=== PATIENT | female | born 2000 | race Caucasian/White ===

== ENCOUNTER 2020-03-19 02:46 | Emergency (ER) | payer MEDICAID, OTHER ==
[~2020-03-19] VITALS: Ht 162 cm; Wt 68.0 kg
[2020-03-19] MEDS ORDERED: LACTATED RINGERS 1,000 ML IV STA (03:04)
[2020-03-19] MEDS ORDERED: KETOROLAC 30 MG/ML VIAL IVP STA (03:04)
[2020-03-19] MEDS ORDERED: ONDANSETRON 4 MG/2 ML (SDV) Z0FRAN IVP ONE (03:15)
[2020-03-19 03:17] LABS: BASOPHILS # (AUTO) 0.1 10^3/uL (0.0-0.1); BASOPHILS % (AUTO) 1 % (0-10); EOSINOPHILS # (AUTO) 0.2 10^3/uL (0.0-0.3); EOSINOPHILS % (AUTO) 2 % (0-10); HEMATOCRIT 41 % (35-52); HEMOGLOBIN 12.4 g/dL (11.5-16.0); LYMPHOCYTES # (AUTO) 4.4 10^3/uL (1.0-4.0); LYMPHOCYTES % (AUTO) 36 % (12-44); MEAN CORPUSCULAR HEMOGLOBIN 21 pg (25-34); MEAN CORPUSCULAR HGB CONC 30 g/dL (32-36); MEAN CORPUSCULAR VOLUME 70 fL (80-99); MONOCYTES # (AUTO) 0.7 10^3/uL (0.0-1.0); MONOCYTES % (AUTO) 6 % (0-12); NEUTROPHILS % (AUTO) 57 % (42-75); PLATELET COUNT 338 10^3/uL (130-400); WHITE BLOOD COUNT 12.4 10^3/uL (4.3-11.0)
--- NOTE | 2020-03-19 03:24 | ED GI ---
General Chief Complaint: Abdominal/GI Problems Stated Complaint: STOMACH PAIN Source of Information: Patient Exam Limitations: No Limitations (SAHIL VINSON MED STUDENT) History of Present Illness Date Seen by Provider: Mar 19, 2020 Time Seen by Provider: 03:11 Initial Comments 19yo F that presents to ED with report of abdominal pain that started a couple of hours ago. Pain is described as sharp and burning with radiation to the right side that wraps around to her flank and back. She reports having a similar episode while she was a couple of months ago but the doctors did not give her a clear explanation as to the cause. Patient says she has tired tums in the past and they did not help. She had a vaginal deliver in early January. She is taking oral contraception and is sexually active. She reports that she has not started having her menstrual cycles since giving yet. Reports a history of HIV and is currently taking Biktarvy. Timing/Duration: 1-3 Hours Severity/Quality: Mild, Moderate, Burning, Sharp Location: RUQ, Epigastric Radiation: Back, Flank Activities at Onset: Rest Associated Symptoms: Chest Pain, Diaphoresis, Fever/Chills (chills ), Nausea/Vomiting (nausea w/out vomiting ), Shortness of Air (SAHIL VINSONMED STUDENT) Allergies and Home Medications Allergies Coded Allergies: Sulfa (Sulfonamide Antibiotics) (Verified Allergy, Unknown, 03/19/20) Patient Home Medication List Home Medication List Reviewed: Yes (EVARISTO PEREZ MD) Review of Systems Review of Systems Constitutional: chills, diaphoresis; No dizziness, No fever, No weakness EENTM: No Blurred Vision, No Double Vision, No Eye Pain Respiratory: Denies Cough, Denies Orthopnea; Shortness of Air Cardiovascular: Denies Chest Pain, Denies Irregular Heart Rate, Denies Lightheadedness, Denies Palpitations Gastrointestinal: Denies Abdomen Distended; Abdominal Pain (epigastric and RUQ ); Denies Constipated, Denies Diarrhea; Nausea; Denies Vomiting Genitourinary: Denies Burning, Denies Discharge, Denies Frequency (SAHIL VINSON MED STUDENT) Psychiatric/Neurological: No Symptoms Reported (EVARISTO PEREZ MD) Past Dhgakmt-Fbjdtj-Pjweqo Hx Past Med/Social Hx: Reviewed Nursing Past Med/Soc Hx (EVARISTO PEREZ MD) Patient Social History Recent Foreign Travel: No Contact w/Someone Who Travel: No (SAHIL VINSON,CARLYN STUDENT) Past Medical History HIV/AIDS: Yes (since age 13, is on biktarvy ) (SAHIL VINSON MED STUDENT) Family Medical History Reviewed Nursing Family Hx (EVARISTO PEREZ MD) Physical Exam Vital Signs Vital Signs - First Documented 03/19/20 02:50 Temp 35.4 Pulse 73 Resp 18 B/P (MAP) 116/60 (78) Pulse Ox 99 (EVARISTO PEREZ MD) Vital Signs Capillary Refill : (SAHIL VINSON MED STUDENT) Height/Weight/BMI Height: '" Weight: lbs. oz. kg; BMI Method: General Appearance: WD/WN, mild distress HEENT: PERRL/EOMI, normal ENT inspection, TMs normal, other (dental carries noted bilaterally on upper molars ) Respiratory: chest non-tender, lungs clear, normal breath sounds, no respiratory distress, no accessory muscle use Cardiovascular: regular rate, rhythm, no edema, no gallop, no JVD, no murmur Gastrointestinal: normal bowel sounds, soft, no organomegaly, no pulsatile mass, tenderness (in the epigastric and RUQ to light and deep palpation ) Extremities: normal range of motion Neurologic/Psychiatric: alert, normal mood/affect, oriented x 3 Skin: normal color, cool, damp (SAHIL VINSON MED STUDENT) General Appearance: WD/WN, mild distress Neck: full range of motion, supple Respiratory: lungs clear, normal breath sounds Cardiovascular: regular rate, rhythm, no murmur Peripheral Pulses: 2+ Dorsalis Pedis (R), 2+ Left Dors-Pedis (L), 2+ Radial Pulses (R), 2+ Radial Pulses (L) Gastrointestinal: soft, tenderness (in the epigastric and RUQ to light and deep palpation ) Extremities: non-tender, normal inspection Back: normal inspection, no CVA tenderness, no vertebral tenderness Neurologic/Psychiatric: alert, oriented x 3 Skin: normal color, cool (EVARISTO PEREZ MD) Progress/Results/Core Measures Results/Orders Lab Results Laboratory Tests Test 03/19/20 03:00 03/19/20 03:17 Range/Units White Blood Count 12.4 H 4.3-11.0 10^3/uL Red Blood Count 5.96 H 3.80-5.11 10^6/uL Hemoglobin 12.4 11.5-16.0 g/dL Hematocrit 41 35-52 % Mean Corpuscular Volume 70 L 80-99 fL Mean Corpuscular Hemoglobin 21 L 25-34 pg Mean Corpuscular Hemoglobin Concent 30 L 32-36 g/dL Red Cell Distribution Width 22.6 H 10.0-14.5 % Platelet Count 338 130-400 10^3/uL Mean Platelet Volume 10.0 9.0-12.2 fL Immature Granulocyte % (Auto) 0 % Neutrophils (%) (Auto) 57 42-75 % Lymphocytes (%) (Auto) 36 12-44 % Monocytes (%) (Auto) 6 0-12 % Eosinophils (%) (Auto) 2 0-10 % Basophils (%) (Auto) 1 0-10 % Neutrophils # (Auto) 7.0 1.8-7.8 10^3/uL Lymphocytes # (Auto) 4.4 H 1.0-4.0 10^3/uL Monocytes # (Auto) 0.7 0.0-1.0 10^3/uL Eosinophils # (Auto) 0.2 0.0-0.3 10^3/uL Basophils # (Auto) 0.1 0.0-0.1 10^3/uL Immature Granulocyte # (Auto) 0.0 0.0-0.1 10^3/uL Sodium Level 142 135-145 MMOL/L Potassium Level 3.8 3.6-5.0 MMOL/L Chloride Level 105 98-107 MMOL/L Carbon Dioxide Level 25 21-32 MMOL/L Anion Gap 12 5-14 MMOL/L Blood Urea Nitrogen 10 7-18 MG/DL Creatinine 0.90 0.60-1.30 MG/DL Estimat Glomerular Filtration Rate > 60 BUN/Creatinine Ratio 11 Glucose Level 107 H 70-105 MG/DL Calcium Level 10.4 H 8.5-10.1 MG/DL Corrected Calcium 8.5-10.1 MG/DL Total Bilirubin 0.4 0.1-1.0 MG/DL Aspartate Amino Transf (AST/SGOT) 41 H 5-34 U/L Alanine Aminotransferase (ALT/SGPT) 48 0-55 U/L Alkaline Phosphatase 78 40-136 U/L C-Reactive Protein High Sensitivity 0.44 0.00-0.50 MG/DL Total Protein 8.2 6.4-8.2 GM/DL Albumin 4.7 H 3.2-4.5 GM/DL Lipase 27 8-78 U/L Urine Opiates Screen NEGATIVE NEGATIVE Urine Oxycodone Screen NEGATIVE NEGATIVE Urine Methadone Screen NEGATIVE NEGATIVE Urine Propoxyphene Screen NEGATIVE NEGATIVE Urine Barbiturates Screen NEGATIVE NEGATIVE Ur Tricyclic Antidepressants Screen NEGATIVE NEGATIVE Urine Phencyclidine Screen NEGATIVE NEGATIVE Urine Amphetamines Screen NEGATIVE NEGATIVE Urine Methamphetamines Screen NEGATIVE NEGATIVE Urine Benzodiazepines Screen NEGATIVE NEGATIVE Urine Cocaine Screen NEGATIVE NEGATIVE Urine Cannabinoids Screen NEGATIVE NEGATIVE (EVARISTO PEREZ MD) My Orders Orders - EVARISTO PEREZ MD Cbc With Automated Diff (03/19/20 03:04) Comprehensive Metabolic Panel (03/19/20 03:04) Hs C Reactive Protein (03/19/20 03:04) Ondansetron Injection (Zofran Injectio (03/19/20 03:15) Lactated Ringers (Lr 1000 Ml Iv Solution (03/19/20 03:04) Ed Iv/Invasive Line Start (03/19/20 03:04) Ketorolac Injection (Toradol Injection) (03/19/20 03:04) Urine Bedside (03/19/20 03:06) Lipase (03/19/20 03:06) Drug Screen Stat (Urine) (03/19/20 03:43) Fentanyl Injection (Sublimaze Injection (03/19/20 03:50) Famotidine Injection (Pepcid Injection) (03/19/20 03:50) (EVARISTO PEREZ MD) Medications Given in ED Current Medications Medications Dose Ordered Sig/Pablo Route Start Time Stop Time Status Last Admin Dose Admin Ondansetron HCl 4 mg ONCE ONCE IVP 03/19/20 03:15 03/19/20 03:16 DC 03/19/20 03:12 4 MG (EVARISTO PEREZ MD) Vital Signs/I&O 03/19/20 02:50 Temp 35.4 Pulse 73 Resp 18 B/P (MAP) 116/60 (78) Pulse Ox 99 (EVARISTO PEREZ MD) Progress Progress Note : Progress Note I have seen and examined this 19yo female who presents with epigastric pain that started several hours ago and reports a history of HIV. Working up for epigastric/RUQ pain which includes cholelithiasis, cholecystitis, hepatitis, hepatic steatosis, and peptic ulcer disease, (SAHIL VINSON,MED STUDENT) Progress Note : Progress Note I have seen and evaluated the patient and agree with above except as indicated. I have directed the plan of care. Patient is here with upper abdominal pain as well as right upper quadrant pain and concerns that she is having problems with her gallbladder. She states that she had similar during her but has not had follow-up since delivery of her baby in January. Does have nausea. Denies fevers but does appear somewhat diaphoretic. Evaluation as above. Plan for IV and labs as well as urine bedside. Toradol 30 mg IV ordered as well as Zofran 4 mg IV. Monitor patient. 0354: Fentanyl 50 g IV and Pepcid 20 mg IV ordered for persistent pain. Labs reviewed and do not show significant findings at this point. Monitor patient. 0420: Pain improved and patient na erating by mouth fluids without difficulty now. I did discuss follow-up and will give her information for local surgeons. Discharged home with return precautions. Patient verbalize understanding instructions and agreement with plan. (EVARISTO PEREZ MD) Departure Impression Primary Impression: Upper abdominal pain Disposition: HOME, SELF-CARE Condition: Improved Departure-Patient Inst. Decision time for Depature: 04:21 (EVARISTO PEREZ MD) Referrals: HUGO MORALES BRETT D DO Patient Instructions: Severe Abdominal Pain, Adult (DC), Gallstones (DC) Add. Discharge Instructions: All discharge instructions reviewed with patient and/or family. Voiced understanding. Eat a light, non-fatty diet for the next week or so and limited ability as tolerated. You should avoid fatty foods if you have gallbladder disease. You may take Pepcid or the generic famotidine, 20 mg daily for the next week or 2 and then as needed. You should follow-up with the surgeon listed or of your choice for recheck and further evaluation and for possible upper endoscopy (scope). You may take Tylenol/acetaminophen 1000 mg every 8 hours as needed for pain. Return for worse pain, fever, vomiting, blood in her vomit or stool or other concerns as needed. Continue other home medications as previously prescribed. SAHIL VINSON,MED STUDENT Mar 19, 2020 03:24 EVAIRSTO PEREZ MD Mar 19, 2020 03:55
[2020-03-19 03:27] LABS: ALBUMIN 4.7 GM/DL (3.2-4.5); CHLORIDE 105 MMOL/L (98-107); POTASSIUM 3.8 MMOL/L (3.6-5.0); SODIUM 142 MMOL/L (135-145)
[2020-03-19 03:28] LABS: CALCIUM 10.4 MG/DL (8.5-10.1)
[2020-03-19 03:30] LABS: GLUCOSE 107 MG/DL (70-105); TOTAL PROTEIN 8.2 GM/DL (6.4-8.2)
[2020-03-19 03:31] LABS: CARBON DIOXIDE 25 MMOL/L (21-32)
[2020-03-19 03:32] LABS: BILIRUBIN,TOTAL 0.4 MG/DL (0.1-1.0)
[2020-03-19 03:33] LABS: ALKALINE PHOSPHATASE 78 U/L (40-136); GFR ESTIMATED > 60
[2020-03-19 03:34] LABS: BUN/CREATININE RATIO 11
[2020-03-19 03:36] LABS: ALANINE AMINOTRANSFERASE 48 U/L (0-55)
[2020-03-19 03:37] LABS: LIPASE 27 U/L (8-78)
[2020-03-19] MEDS ORDERED: FAMOTIDINE 20MG/2ML IV (PEPCID) IV STA (03:50)
[2020-03-19] MEDS ORDERED: fentaNYL INJECTION 100 MCG/2 ML AMP IVP STA (03:50)
[2020-03-19 04:13] LABS: AMPHETAMINE SCREEN, URINE NEGATIVE (NEGATIVE); BARBITURATE SCREEN URINE NEGATIVE (NEGATIVE); BENZODIAZEPINES SCREEN URINE NEGATIVE (NEGATIVE); CANNABINOID SCREEN, URINE NEGATIVE (NEGATIVE); COCAINE SCREEN URINE NEGATIVE (NEGATIVE); METHADONE STAT NEGATIVE (NEGATIVE); METHAMPHETAMINE SCREEN URINE S NEGATIVE (NEGATIVE); OPIATE SCREEN URINE NEGATIVE (NEGATIVE); OXYCODONE STAT NEGATIVE (NEGATIVE); PROPOXYPHENE STAT NEGATIVE (NEGATIVE); TRICYCLIC ANTIDEPRESSANTS SCRE NEGATIVE (NEGATIVE)
[2020-03-19 04:34] VITALS: BP 112/80
== END 2020-03-19 04:35 | disposition home or self-care (01) ==
LOC: ER 02:49
DX: R10.13 Epigastric pain (principal); Z88.2 Allergy status to sulfonamides
CPT/HCPCS: 36415; 80053; 80306; 83690; 84703; 85025; 86141

== ENCOUNTER 2020-03-29 06:48 | Emergency (ER) | payer MEDICAID ==
[~2020-03-29] VITALS: Ht 162 cm; Wt 68.0 kg
--- NOTE | 2020-03-29 07:20 | ED Abdominal Pain ---
General Chief Complaint: Abdominal/GI Problems Stated Complaint: UPPER ABD PAIN Nursing Triage Note: PT REPORTS TO ED FOR UPPER ABD PAIN THAT STARTED YESTERDAY. PT AMB TO ROOM 05 WITHOUT DIFFICULTY. Sepsis Screen: No Definite Risk Source of Information: Patient Exam Limitations: No Limitations (TK RYAN STUDENT) History of Present Illness Date Seen by Provider: Mar 29, 2020 Time Seen by Provider: 07:00 Initial Comments Ms. Summers is a 19 y/o F who presents to ED with chief complaint of epigastric and RUQ abdominal pain. She describes the pain as "sharp" and radiating to the right back. She rates the pain at 9/10 and started last night at 10pm. She was "barely" able to sleep due to the pain. She said that the pain has happened in the past approximately every 2 weeks ever since she was . She had a vaginal 2 months ago with an uncomplicated at [place], [place]. She was told in the past her pain was either due to her "gallbladder or ulcer" and she was given pain medications in the past and discharged from the ED. She denies any inciting event or predictability to the pain. She has tried tums and tylenol with no relief. She reports pain worsens when taking a deep breath and she has some nausea. She denies vomiting or worsening of pain with eating or position changes. She denies fever, chest pain, RANGEL, urinary or bowel changes. Last time she ate was at 8pm last night and last drink of water was at 3-4am. (TK RYAN MED STUDENT) Allergies and Home Medications Allergies Coded Allergies: Sulfa (Sulfonamide Antibiotics) (Verified Allergy, Unknown, 03/19/20) Home Medications Hydrocodone/Acetaminophen 1 Each Tablet, 1 EACH PO Q4H PRN for PAIN-SEVERE (8- 10) Prescribed by: CRISTIAN FERRO on 03/29/20 0943 Ondansetron 4 Mg Tab.rapdis, 4 MG SL Q4H PRN for NAUSEA/VOMITING Prescribed by: CRISTIAN FERRO on 03/29/20 0942 Oxycodone HCl/Acetaminophen 1 Each Tablet, 1 TAB PO Q4H PRN for PAIN- BREAKTHROUGH Prescribed by: JIMMY FARRELL on 03/30/20 2244 Promethazine HCl 25 Mg Tablet, 25 MG PO Q6H PRN for NAUSEA/VOMITING Prescribed by: JIMMY FARRELL on 03/30/20 3043 Patient Home Medication List Home Medication List Reviewed: Yes (TK RYAN MED STUDENT) Review of Systems Review of Systems Constitutional: No chills, No dizziness, No fever, No weakness EENTM: No Blurred Vision, No Nose Congestion, No Throat Pain Respiratory: Denies Cough, Denies Shortness of Air Cardiovascular: Denies Chest Pain, Denies Lightheadedness Gastrointestinal: Abdominal Pain; Denies Constipated, Denies Diarrhea; Nausea; Denies Vomiting Genitourinary: Flank Pain Musculoskeletal: no symptoms reported Skin: no symptoms reported; No rash Psychiatric/Neurological: Denies Headache, Denies Numbness, Denies Weakness (TK RYAN MED STUDENT) Past Aelkhvl-Ykcocc-Etywph Hx Patient Social History Type Used: Cigarettes 2nd Hand Smoke Exposure: No Recent Foreign Travel: No Contact w/Someone Who Travel: No Recent Infectious Disease Expo: No Recent Hopitalizations: No (TK RYAN MED STUDENT) Immunizations Up To Date Tetanus Booster (TDap): Less than 5yrs PED Vaccines UTD: Yes Date of Influenza Vaccine: Dec 27, 2019 (TK RYAN MED STUDENT) Seasonal Allergies Seasonal Allergies: No (TK RYAN MED STUDENT) Past Medical History Surgeries: No Respiratory: No Cardiac: No Neurological: No HIV/AIDS: Yes (since age 13, is on biktarvy ) Genitourinary: No Gastrointestinal: No Musculoskeletal: No Endocrine: No HEENT: No Cancer: No Integumentary: No Blood Disorders: No (TK RYAN MED STUDENT) Physical Exam Vital Signs Vital Signs - First Documented 03/29/20 06:59 Temp 36.5 Pulse 55 Resp 18 B/P (MAP) 109/64 (79) Pulse Ox 100 O2 Delivery Room Air (CRISTIAN SHERIFF MD) Vital Signs Capillary Refill : Less Than 3 Seconds (KT RYAN MED STUDENT) Height/Weight/BMI Height: '" Weight: lbs. oz. kg; 25.00 BMI Method: General Appearance: WD/WN, mild distress HEENT: PERRL/EOMI, normal ENT inspection, pharynx normal Neck: non-tender, full range of motion, normal inspection Respiratory: chest non-tender, lungs clear, normal breath sounds, no respiratory distress, no accessory muscle use Cardiovascular: regular rate, rhythm, no murmur Gastrointestinal: normal bowel sounds, soft; No distended, No guarding, No rebound; tenderness (RUQ and epigastric TTP. R Flank TTP. Positive cardenas sign. ) Extremities: normal range of motion, non-tender, normal inspection, no pedal edema, no calf tenderness Back: normal inspection, CVA tenderness (R); No CVA tenderness (L) Neurologic/Psychiatric: no motor/sensory deficits, alert, normal mood/affect, oriented x 3 Skin: normal color, warm/dry (TK RYAN MED STUDENT) Progress/Results/Core Measures Results/Orders Lab Results Laboratory Tests Test 03/29/20 07:20 03/29/20 07:28 Range/Units Urine Color YELLOW Urine Clarity CLEAR Urine pH 8.0 5-9 Urine Specific Falcon 1.015 L 1.016-1.022 Urine Protein TRACE H NEGATIVE Urine Glucose (UA) NEGATIVE NEGATIVE Urine Ketones NEGATIVE NEGATIVE Urine Nitrite NEGATIVE NEGATIVE Urine Bilirubin 1+ H NEGATIVE Urine Urobilinogen 4.0 < = 1.0 MG/DL Urine Leukocyte Esterase TRACE H NEGATIVE Urine RBC (Auto) NEGATIVE NEGATIVE Urine RBC NONE /HPF Urine WBC RARE /HPF Urine Squamous Epithelial Cells RARE /HPF Urine Crystals NONE /LPF Urine Amorphous Sediment LARGE PADDY PHOSPHATE H /LPF Urine Bacteria NEGATIVE /HPF Urine Casts NONE /LPF Urine Mucus NEGATIVE /LPF Urine Culture Indicated NO White Blood Count 8.0 4.3-11.0 10^3/uL Red Blood Count 5.77 H 3.80-5.11 10^6/uL Hemoglobin 12.0 11.5-16.0 g/dL Hematocrit 41 35-52 % Mean Corpuscular Volume 70 L 80-99 fL Mean Corpuscular Hemoglobin 21 L 25-34 pg Mean Corpuscular Hemoglobin Concent 30 L 32-36 g/dL Red Cell Distribution Width 21.6 H 10.0-14.5 % Platelet Count 315 130-400 10^3/uL Mean Platelet Volume 9.8 9.0-12.2 fL Immature Granulocyte % (Auto) 0 % Neutrophils (%) (Auto) 61 42-75 % Lymphocytes (%) (Auto) 32 12-44 % Monocytes (%) (Auto) 6 0-12 % Eosinophils (%) (Auto) 1 0-10 % Basophils (%) (Auto) 0 0-10 % Neutrophils # (Auto) 4.9 1.8-7.8 10^3/uL Lymphocytes # (Auto) 2.5 1.0-4.0 10^3/uL Monocytes # (Auto) 0.5 0.0-1.0 10^3/uL Eosinophils # (Auto) 0.0 0.0-0.3 10^3/uL Basophils # (Auto) 0.0 0.0-0.1 10^3/uL Immature Granulocyte # (Auto) 0.0 0.0-0.1 10^3/uL Sodium Level 141 135-145 MMOL/L Potassium Level 3.9 3.6-5.0 MMOL/L Chloride Level 106 98-107 MMOL/L Carbon Dioxide Level 25 21-32 MMOL/L Anion Gap 10 5-14 MMOL/L Blood Urea Nitrogen 8 7-18 MG/DL Creatinine 0.82 0.60-1.30 MG/DL Estimat Glomerular Filtration Rate > 60 BUN/Creatinine Ratio 10 Glucose Level 95 70-105 MG/DL Calcium Level 10.3 H 8.5-10.1 MG/DL Corrected Calcium 8.5-10.1 MG/DL Total Bilirubin 1.4 H 0.1-1.0 MG/DL Aspartate Amino Transf (AST/SGOT) 126 H 5-34 U/L Alanine Aminotransferase (ALT/SGPT) 110 H 0-55 U/L Alkaline Phosphatase 98 40-136 U/L C-Reactive Protein High Sensitivity 0.63 H 0.00-0.50 MG/DL Total Protein 8.1 6.4-8.2 GM/DL Albumin 4.6 H 3.2-4.5 GM/DL Lipase 28 8-78 U/L Serum Test, Qualitative NEGATIVE NEGATIVE (CRISTIAN SHERIFF MD) My Orders Orders - CRISTIAN SHERIFF MD Cbc With Automated Diff (03/29/20 07:25) Comprehensive Metabolic Panel (03/29/20 07:25) Hs C Reactive Protein (03/29/20 07:25) Hcg,Qualitative Serum (03/29/20 07:25) Ua Culture If Indicated (03/29/20 07:25) Ed Iv/Invasive Line Start (03/29/20 07:25) Us Gallbladder [id number] (03/29/20 07:27) Fentanyl Injection (Sublimaze Injection (03/29/20 07:30) Ondansetron Injection (Zofran Injectio (03/29/20 07:30) Lipase (03/29/20 07:29) Morphine Injection (Morphine Injection (03/29/20 08:29) Promethazine Injection (Phenergan Injec (03/29/20 08:45) Ns Iv 1000 Ml (Sodium Chloride 0.9%) (03/29/20 08:31) (CRISTIAN SHERIFF MD) Medications Given in ED (CRISTIAN SHERIFF MD) Vital Signs/I&O 03/29/20 03/29/20 06:59 09:54 Temp 36.5 36.6 Pulse 55 57 Resp 18 16 B/P (MAP) 109/64 (79) 110/61 Pulse Ox 100 98 O2 Delivery Room Air Room Air (CRISTIAN SHERIFF MD) Blood Pressure Mean: 79 Progress Progress Note : Progress Note Ms. Summers is a 19 y/o F with PMH of uncomplicated vaginal 2 months ago who presents to ED with chief complaint of RUQ and epigastric TTP. Differential includes but not limited to: gastritis, choledocholithiasis, acute cholecystitis, pancreatitis, renal calculi or colic. Will give anti-nausea and pain medications. Will order a RUQ abdominal US. Will also order lipase, CRP, CBC, CMP and UA to look for signs of infection, kidney stone or pancreatitis. 08 Update: US technician preventative medicine informal report is multiple mobile stones in gallbladder with common bile duct measured at 12mm. CBC showed no leukocytosis. Elevated CRP, tbili and transaminases. Initial 50mcg fentanyl and 8 zofran provided minimal relief, gave additional pain medications and phenergine bolus at this time. (TK RYAN STUDENT) Diagnostic Imaging Diagonstic Imaging: Ultrasound Plain Films/CT/US/NM/MRI: abdomen Comments Gallbladder ultrasound report reviewed and discussed with the radiologist. See report below: NAME: AVERY SUMMERS [facility] REC#: [id number] PT STATUS: REG ER : 2000 PHYSICIAN: CRISTIAN SHERIFF MD ADMIT DATE: 03/29/20/ER Draft Date of Exam:03/29/20 US GALLBLADDER [id number] CLINICAL INDICATION: Patient with right upper quadrant pain. EXAM: Right upper quadrant ultrasound. COMPARISON: None. FINDINGS: Bowel gas obscures some portions of the pancreatic tail. Otherwise visualized portions of the pancreas is unremarkable. The liver has normal echogenicity and echotexture. The liver measures 16.1 cm in craniocaudal dimension. The liver surface is smooth. There is no liver mass. The main portal vein demonstrates normal hepatopetal flow. There is no intrahepatic ductal dilation. Common bile duct is dilated at 1.2 cm. There are multiple hyperechoic mobile stones within the gallbladder with posterior shadowing seen. There is also a hyperechoic object within the mid to distal common bile duct with posterior shadowing concerning for a stone in the common bile duct. There is no pericholecystic fluid. The gallbladder is fluid distended. There is positive sonographic Cardenas sign. The gallbladder wall measures 3 mm. Right kidney has normal cortical thickness with no stones, mass, or hydronephrosis. Right kidney measures 10.4 cm in craniocaudal dimension. The visualized portions of the abdominal aorta and IVC are unremarkable. There is no abdominal ascites. IMPRESSION: 1: There is dilation of the common duct measuring 1.2 cm, with a stone within the mid to distal portion of the common duct. This is concerning for choledocholithiasis. MRCP would better evaluate. 2: There is cholelithiasis with positive sonographic Cardenas sign. These findings may be related to very early acute cholecystitis. Results of this report were discussed with Dr. Cristian Ferro via the telephone on 03/29/2020 at 0835 hours. Dictated on workstation # [id number] Dict: 03/29/20 0829 Trans: 03/29/20 0838 [facility] [id number] Interpreted by: BRADY OLIVAREZ MD (CRISTIAN SHERIFF MD) Departure Communication (Admissions) Time/Spoke to Admitting Phy: 08:42 Dr. Morales (CRISTIAN SHERIFF MD) Impression Primary Impression: Cholelithiasis Qualified Codes: K80.01 - Calculus of gallbladder with acute cholecystitis with obstruction Additional Impressions: Choledocholithiasis with acute cholecystitis Right upper quadrant pain Disposition: ADMITTED INPATIENT Condition: Improved Admissions Decision to Admit Reason: Admit from ER (General) Decision to Admit/Date: Mar 29, 2020 Time/Decision to Admit Time: 08:42 (CRISTIAN SHERIFF MD) Departure-Patient Inst. Referrals: NESSA MARADIAGA MD (PCP/Family) Primary Care Physician Patient Instructions: Gallstones Add. Discharge Instructions: Drink plenty of clear liquids and eat a diet extremely low in fats and oils. Follow-up with Dr. Morales next week. Return to the emergency room if you have worsening symptoms including worsening vomiting, escalating pain, fever, etc. You may take Tylenol and/or ibuprofen for pain. You may take up to 600 mg of ibuprofen every 6 hours as needed and/or Tylenol (acetaminophen) up to 1000 mg every 6 hours as needed. If you have more intense pain you may take hydrocodone as prescribed. Use Zofran as prescribed for nausea and vomiting. All discharge instructions reviewed with patient and/or family. Voiced understanding. Scripts Hydrocodone/Acetaminophen (Hydrocodone-Acetamin 5-325 mg) 1 Each Tablet 1 EACH PO Q4H PRN for PAIN-SEVERE (8-10), #10 TAB Prov: CRISTIAN SHERIFF MD 03/29/20 Ondansetron (Ondansetron Odt) 4 Mg Tab.rapdis 4 MG SL Q4H PRN for NAUSEA/VOMITING, #10 TAB Prov: CRISTIAN SHERIFF MD 03/29/20 Medical student attestation and attending note: I have personally interviewed and examined this patient along with AJAY Sanchez. I have reviewed AJAY documentation and agree with his history, physical, and assessments except where otherwise noted. This 19-year-old young lady presents to the emergency room with several months of right upper quadrant pain and nausea that started during her . She has had 1 prior ER visit over a week ago for similar symptoms. She continues to have problems since then. On ultrasound today she is found to have chol elithiasis with possible early acute cholecystitis and possible choledocholithiasis. Case was discussed with Dr. Morales who is recommending cholecystectomy with cholangiogram. If she still appears to have obstruction during cholangiogram, she may be transferred to gastroenterology for follow-up ERCP. Patient is receiving a liter of IV fluid with Phenergan. Nausea was refractory to Zofran treatment. Pain was initially treated with fentanyl and followed by morphine. Exam: General: Alert and oriented, well-developed, no acute distress HEENT: Normocephalic and atraumatic, mucous membranes somewhat dry Heart: Regular rate and rhythm without murmur Lungs: Clear to auscultation bilaterally with normal effort Abdomen: Soft, tender in the epigastrium and right upper quadrant, positive Cardenas sign, nondistended, normal bowel sounds Extremities: Normal to inspection Neuropsych: Alert and oriented with no gross focal deficits 09:50 -Dr. Morales who presented to the emergency room to evaluate the patient. After discussing the situation with Dr. Morales, she elects to wait and arrange outpatient surgery. She was prescribed medications for symptomatic management and return precautions were provided. (CRISTIAN SHERIFF MD) Copy Copies To 1: HUGO MORALES VAN A MED STUDENT Mar 29, 2020 07:20 CRISTIAN SHERIFF MD Mar 29, 2020 08:53
[2020-03-29] MEDS ORDERED: ONDANSETRON 4 MG/2 ML (SDV) Z0FRAN IVP ONE (07:30)
[2020-03-29] MEDS ORDERED: fentaNYL INJECTION 100 MCG/2 ML AMP IVP ONE (07:30)
[2020-03-29 07:35] LABS: CLARITY,URINE CLEAR; COLOR,URINE YELLOW; GLUCOSE, URINE (UA) NEGATIVE (NEGATIVE); KETONES,URINE NEGATIVE (NEGATIVE); LEUKOCYTE ESTERASE ,URINE TRACE (NEGATIVE); NITRITE,URINE NEGATIVE (NEGATIVE); PROTEIN,URINE TRACE (NEGATIVE)
[2020-03-29 07:40] LABS: BASOPHILS % (AUTO) 0 % (0-10); EOSINOPHILS % (AUTO) 1 % (0-10); HEMATOCRIT 41 % (35-52); LYMPHOCYTES # (AUTO) 2.5 10^3/uL (1.0-4.0); LYMPHOCYTES % (AUTO) 32 % (12-44); MEAN CORPUSCULAR HEMOGLOBIN 21 pg (25-34); MEAN CORPUSCULAR HGB CONC 30 g/dL (32-36); MEAN CORPUSCULAR VOLUME 70 fL (80-99); MEAN PLATELET VOLUME 9.8 fL (9.0-12.2); MONOCYTES # (AUTO) 0.5 10^3/uL (0.0-1.0); MONOCYTES % (AUTO) 6 % (0-12); NEUTROPHILS # (AUTO) 4.9 10^3/uL (1.8-7.8); NEUTROPHILS % (AUTO) 61 % (42-75); PLATELET COUNT 315 10^3/uL (130-400)
[2020-03-29 07:44] LABS: BACTERIA,URINE NEGATIVE /HPF; WBC,URINE RARE /HPF
[2020-03-29 07:45] LABS: AMORPHOUS SEDIMENT,UR LARGE AMOR PHOSPHATE /LPF; BILIRUBIN,URINE 1+ (NEGATIVE); SQUAMOUS EPITHELIAL CELL,UR RARE /HPF
[2020-03-29 07:57] LABS: ALBUMIN 4.6 GM/DL (3.2-4.5); CHLORIDE 106 MMOL/L (98-107)
[2020-03-29 07:58] LABS: POTASSIUM 3.9 MMOL/L (3.6-5.0); SODIUM 141 MMOL/L (135-145)
[2020-03-29 07:59] LABS: CALCIUM 10.3 MG/DL (8.5-10.1)
[2020-03-29 08:00] LABS: GLUCOSE 95 MG/DL (70-105); TOTAL PROTEIN 8.1 GM/DL (6.4-8.2)
[2020-03-29 08:01] LABS: CARBON DIOXIDE 25 MMOL/L (21-32)
[2020-03-29 08:02] LABS: BILIRUBIN,TOTAL 1.4 MG/DL (0.1-1.0)
[2020-03-29 08:03] LABS: ALKALINE PHOSPHATASE 98 U/L (40-136)
[2020-03-29 08:04] LABS: CREATININE SERUM 0.82 MG/DL (0.60-1.30); GFR ESTIMATED > 60
[2020-03-29 08:05] LABS: BUN/CREATININE RATIO 10
[2020-03-29 08:06] LABS: ALANINE AMINOTRANSFERASE 110 U/L (0-55)
[2020-03-29 08:07] LABS: LIPASE 28 U/L (8-78)
[2020-03-29] MEDS ORDERED: morphine INJ 10 MG/ML 1ML (SYR OR VIAL) IVP STA (08:29)
[2020-03-29] MEDS ORDERED: NS IV 1000 ML 1,000 ML IV SCH (08:31)
--- NOTE | 2020-03-29 08:39 | Diagnostic Imaging Report ---
CLINICAL INDICATION: Patient with right upper quadrant pain. EXAM: Right upper quadrant ultrasound. COMPARISON: None. FINDINGS: Bowel gas obscures some portions of the pancreatic tail. Otherwise visualized portions of the pancreas is unremarkable. The liver has normal echogenicity and echotexture. The liver measures 16.1 cm in craniocaudal dimension. The liver surface is smooth. There is no liver mass. The main portal vein demonstrates normal hepatopetal flow. There is no intrahepatic ductal dilation. Common bile duct is dilated at 1.2 cm. There are multiple hyperechoic mobile stones within the gallbladder with posterior shadowing seen. There is also a hyperechoic object within the mid to distal common bile duct with posterior shadowing concerning for a stone in the common bile duct. There is no pericholecystic fluid. The gallbladder is fluid distended. There is positive sonographic Cardenas sign. The gallbladder wall measures 3 mm. Right kidney has normal cortical thickness with no stones, mass, or hydronephrosis. Right kidney measures 10.4 cm in craniocaudal dimension. The visualized portions of the abdominal aorta and IVC are unremarkable. There is no abdominal ascites. IMPRESSION: 1: There is dilation of the common duct measuring 1.2 cm, with a stone within the mid to distal portion of the common duct. This is concerning for choledocholithiasis. MRCP would better evaluate. 2: There is cholelithiasis with positive sonographic Cardenas sign. These findings may be related to very early acute cholecystitis. Results of this report were discussed with Dr. Cristian Ferro via the telephone on 03/29/2020 at 0835 hours. Dictated by: Dictated on workstation # [id number]
[2020-03-29] MEDS ORDERED: PROMETHAZINE INJ 25 MG/ML (PHENERGAN) AMP IVP ONE (08:45)
[2020-03-29] MEDS ORDERED: ACHD5005 PO (09:42)
[2020-03-29] MEDS ORDERED: ONDA4TAB11 SL (09:42)
[2020-03-29 09:54] VITALS: BP 110/61
--- NOTE | 2020-03-29 10:10 | Consultation - Surgery ---
History of Present Illness History of Present Illness Patient Consulted On(sarita/time) 03/29/20 10:04 Time Seen by Provider: 09:11 History of Present Illness Surgery asked to consult regarding cholelithiasis and RUQ pain. HPI per ED: PT REPORTS TO ED FOR UPPER ABD PAIN THAT STARTED YESTERDAY. PT AMB TO ROOM 05 WITHOUT DIFFICULTY. Ms. Brownlee is a 19 y/o F who presents to ED with chief complaint of epigastric and RUQ abdominal pain. She describes the pain as "sharp" and radiating to the right back. She rates the pain at 9/10 and started last night at 10pm. She was "barely" able to sleep due to the pain. She said that the pain has happened in the past approximately every 2 weeks ever since she was . She had a vaginal 2 months ago with an uncomplicated at [place], [place]. She was told in the past her pain was either due to her "gallbladder or ulcer" and she was given pain medications in the past and discharged from the ED. She denies any inciting event or predictability to the pain. She has tried tums and tylenol with no relief. She reports pain worsens when taking a deep breath and she has some nausea. She denies vomiting or worsening of pain with eating or p osition changes. She denies fever, chest pain, RANGEL, urinary or bowel changes. Last time she ate was at 8pm last night and last drink of water was at 3-4am. When I spoke to pt this morning she states that she has had this pain for "months" and it is worse with fatty foods. Nothing seems to make the pain better. She states the pain radiated into her back. Allergies and Home Medications Allergies Coded Allergies: Sulfa (Sulfonamide Antibiotics) (Verified Allergy, Unknown, 03/19/20) Home Medications Hydrocodone/Acetaminophen 1 Each Tablet, 1 EACH PO Q4H PRN for PAIN-SEVERE (8- 10) Prescribed by: CRISTIAN FERRO on 03/29/20 0943 Ondansetron 4 Mg Tab.rapdis, 4 MG SL Q4H PRN for NAUSEA/VOMITING Prescribed by: CRISTIAN FERRO on 03/29/20 0942 Patient Home Medication List Home Medication List Reviewed: Yes Past Rbxnyko-Ibhkhl-Zvjgbe Hx Patient Social History Alcohol Use: Denies Use Recreational Drug Use: No Smoking Status: Current Everyday Smoker Type Used: Cigarettes 2nd Hand Smoke Exposure: No Recent Foreign Travel: No Contact w/Someone Who Travel: No Recent Infectious Disease Expo: No Recent Hopitalizations: No Immunizations Up To Date Tetanus Booster (TDap): Less than 5yrs PED Vaccines UTD: Yes Date of Influenza Vaccine: Dec 27, 2019 Seasonal Allergies Seasonal Allergies: No Surgeries History of Surgeries: No Respiratory History of Respiratory Disorde: No Cardiovascular History of Cardiac Disorders: No Neurological History of Neurological Disord: No Reproductive System : No HIV/AIDS: Yes (since age 13, is on biktarvy ) Genitourinary History of Genitourinary Disor: No Gastrointestinal History of Gastrointestinal Di: No Musculoskeletal History of Musculoskeletal Dis: No Endocrine History of Endocrine Disorders: No HEENT History of HEENT Disorders: No Cancer History of Cancer: No Integumentary History of Skin or Integumenta: No Blood Transfusions History of Blood Disorders: No Family Medical History Significant Family History: Other Conditions/Hx (Pt denies her parents have DM, HTN, CAD and no cancer in her family) Review of Systems-General Constitutional: malaise, weakness EENTM: No blurred vision, No double vision, No eye pain, No mouth swelling, No epistaxis Respiratory: No cough, No dyspnea on exertion, No short of breath Cardiovascular: No chest pain, No edema, No palpitations Gastrointestinal: abdominal pain (RUQ); No hematemesis; nausea; No vomiting Genitourinary: No dysuria, No frequency, No hematuria Musculoskeletal: No joint pain, No joint swelling, No muscle pain, No muscle stiffness Skin: No change in color, No change in hair/nails Psychiatric/Neurological: Denies Anxiety, Denies Depressed, Denies Seizure, Denies Tremors Other pt denies any hx of abnormal bleeding or bruising Physical Exam-General Problems Physical Exam Vital Signs Vital Signs - First Documented 03/29/20 06:59 Temp 36.5 Pulse 55 Resp 18 B/P (MAP) 109/64 (79) Pulse Ox 100 O2 Delivery Room Air Capillary Refill : Less Than 3 Seconds General Appearance: WD/WN, mild distress Eyes: Bilateral Eye PERRL, Bilateral Eye EOMI HEENT: pharynx normal; No scleral icterus (R), No scleral icterus (L) Neck: non-tender, full range of motion, supple Respiratory: chest non-tender, lungs clear, normal breath sounds, no respiratory distress, no accessory muscle use Cardiovascular: regular rate, rhythm, no murmur Gastrointestinal: soft, no organomegaly, no pulsatile mass, tenderness (RUQ) Back: no CVA tenderness, no vertebral tenderness Extremities: normal range of motion, non-tender, normal inspection, no pedal edema, no calf tenderness 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, no motor/sensory deficits, alert, normal mood/affect, oriented x 3 Skin: normal color, warm/dry Lymphatic: no adenopathy (neck, axilla or groin) Data Review Labs Laboratory Tests 03/29/20 07:20: Urine Color YELLOW, Urine Clarity CLEAR, Urine pH 8.0, Urine Specific [place] 1.015L, Urine Protein TRACEH, Urine Glucose (UA) NEGATIVE, Urine Ketones NEGATIVE, Urine Nitrite NEGATIVE, Urine Bilirubin 1+H, Urine Urobilinogen 4.0, Urine Leukocyte Esterase TRACEH, Urine RBC (Auto) NEGATIVE, Urine RBC NONE, Urine WBC RARE, Urine Squamous Epithelial Cells RARE, Urine Crystals NONE, Urine Amorphous Sediment LARGE PADDY PHOSPHATEH, Urine Bacteria NEGATIVE, Urine Casts NONE, Urine Mucus NEGATIVE, Urine Culture Indicated NO 03/29/20 07:28: White Blood Count 8.0, Red Blood Count 5.77H, Hemoglobin 12.0, Hematocrit 41, Mean Corpuscular Volume 70L, Mean Corpuscular Hemoglobin 21L, Mean Corpuscular Hemoglobin Concent 30L, Red Cell Distribution Width 21.6H, Platelet Count 315, Mean Platelet Volume 9.8, Immature Granulocyte % (Auto) 0, Neutrophils (%) (A uto) 61, Lymphocytes (%) (Auto) 32, Monocytes (%) (Auto) 6, Eosinophils (%) (Auto) 1, Basophils (%) (Auto) 0, Neutrophils # (Auto) 4.9, Lymphocytes # (Auto) 2.5, Monocytes # (Auto) 0.5, Eosinophils # (Auto) 0.0, Basophils # (Auto) 0.0, Immature Granulocyte # (Auto) 0.0, Sodium Level 141, Potassium Level 3.9, Chloride Level 106, Carbon Dioxide Level 25, Anion Gap 10, Blood Urea Nitrogen 8, Creatinine 0.82, Estimat Glomerular Filtration Rate > 60, BUN/Creatinine Ratio 10, Glucose Level 95, Calcium Level 10.3H, Corrected Calcium , Total Bilirubin 1.4H, Aspartate Amino Transf (AST/SGOT) 126H, Alanine Aminotransferase (ALT/SGPT) 110H, Alkaline Phosphatase 98, C-Reactive Protein High Sensitivity 0.63H, Total Protein 8.1, Albumin 4.6H, Lipase 28, Serum Test, Qualitative NEGATIVE Radiology Date of Exam:03/29/20 US GALLBLADDER [id number] CLINICAL INDICATION: Patient with right upper quadrant pain. EXAM: Right upper quadrant ultrasound. COMPARISON: None. FINDINGS: Bowel gas obscures some portions of the pancreatic tail. Otherwise visualized portions of the pancreas is unremarkable. The liver has normal echogenicity and echotexture. The liver measures 16.1 cm in craniocaudal dimension. The liver surface is smooth. There is no liver mass. The main portal vein demonstrates normal hepatopetal flow. There is no intrahepatic ductal dilation. Common bile duct is dilated at 1.2 cm. There are multiple hyperechoic mobile stones within the gallbladder with posterior shadowing seen. There is also a hyperechoic object within the mid to distal common bile duct with posterior shadowing concerning for a stone in the common bile duct. There is no pericholecystic fluid. The gallbladder is fluid distended. There is positive sonographic Cardenas sign. The gallbladder wall measures 3 mm. Right kidney has normal cortical thickness with no stones, mass, or hydronephrosis. Right kidney measures 10.4 cm in craniocaudal dimension. The visualized portions of the abdominal aorta and IVC are unremarkable. There is no abdominal ascites. IMPRESSION: 1: There is dilation of the common duct measuring 1.2 cm, with a stone within the mid to distal portion of the common duct. This is concerning for choledocholithiasis. MRCP would better evaluate. 2: There is cholelithiasis with positive sonographic Cardenas sign. These findings may be related to very early acute cholecystitis. Results of this report were discussed with Dr. Cristian Ferro via the telephone on 03/29/2020 at 0835 hours. Dictated on workstation # [id number] Dict: 03/29/20 0829 Trans: 03/29/20 0838 CV [id number] Interpreted by: BRADY OLIVAREZ MD Assessment/Plan Assessment/Plan Assessment/Plan Acute Cholecystitis with Cholelithiasis possible Choledochalithiasis. Pt was given options of surgery today, surgery at a later date or no surgery at all. I told her my opinion was that she needed surgery sooner rather than later. I offered to do Laparoscopic Cholecystectomy today or we could do it next week. We discussed the procedure, risks and complications not limited to pain, bleeding, infection, scar, damage to bowel or bile duct and need for further procedure. Pt's US showed a dilated CBD and Radiologist was concerned about possible choledochal obstruction. I think the cholangiogram during the procedure will be very important and I talked to her about the need of possible ERCP. She decided she did not want to do surgery today and would rather schedule it next week; I think she wants to get home to her new baby. I told her if the pain returned or was worse, or any other change of symptoms she should come back to the ER. 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 All questions answered to her satisfaction. HUGO MORALES DO Mar 29, 2020 10:10
[2020-03-30] MEDS ORDERED: PROM25TA14 PO (22:43)
[2020-03-30] MEDS ORDERED: OXYC1TAB87 PO (22:43)
== END 2020-03-29 09:54 | disposition other institution (70) ==
LOC: EDUNIT# 06:48 → ER 06:52
DX: K80.10 Calculus of gallbladder with chronic cholecystitis without obstruction (principal); Z88.2 Allergy status to sulfonamides
CPT/HCPCS: 36415; 76705; 80053; 81000; 83690; 84703; 85025; 86141

== ENCOUNTER 2020-03-29 23:44 | Day surgery (SDC) | payer MEDICAID ==
[~2020-03-29] VITALS: Ht 162.6 cm; Wt 72.2 kg
[~2020-03-29 23:44] MED LIST: ACHD5005 PO; ONDA4TAB11 SL
[2020-03-30] VITALS (11 sets, daily range): BP systolic 101–123; BP diastolic 49–61
[2020-03-30] MEDS ORDERED: morphine INJ 10 MG/ML 1ML (SYR OR VIAL) IVP STA (00:24)
[2020-03-30] MEDS ORDERED: NS IV 500 ML 500 ML IV ONE (00:24)
[2020-03-30] MEDS ORDERED: FAMOTIDINE 20MG/2ML IV (PEPCID) IVP ONE (00:30)
[2020-03-30] MEDS ORDERED: CALCIUM CARBONATE 600 MG (CALCARB) TAB PO ONE (00:30)
[2020-03-30] MEDS ORDERED: ONDANSETRON 4 MG/2 ML (SDV) Z0FRAN IVP ONE (00:30)
--- NOTE | 2020-03-30 00:33 | ED Abdominal Pain ---
General Chief Complaint: Abdominal/GI Problems Stated Complaint: UPPER ABD PAIN Nursing Triage Note: PT CO OF R UPPER ABD PAIN AND BURNING, WAS SEEN IN ED ON 03/29 AND HAS GB PAIN, PT HAS HAD LAB AND ULTRASOUND DONE DURING VISIT. PT WAS TOLD TO COME BACK TO ED FOR PAIN NOT RELIEVED BY HYDROCODONE. Sepsis Screen: No Definite Risk Source of Information: Patient Exam Limitations: No Limitations History of Present Illness Date Seen by Provider: Mar 30, 2020 Time Seen by Provider: 00:21 Initial Comments patient presents to ER by private conveyance from home with chief complaint of progressive worsening biliary colic. She was worked up earlier yesterday morning and discovered to have gallstones without cholecystitis. Dr. Asher encouraged her to have her gallbladder out she said she would prefer to wait until later in the week to do it. She says unfortunately her pain and nausea is not under control despite ondansetron and hydrocodone. She did take her last dose about 4 hours ago. She ate her last meal around 1999 yesterday. She says she had some pa sta salad. She has had no diarrhea or constipation. No fevers or chills. Allergies and Home Medications Allergies Coded Allergies: Sulfa (Sulfonamide Antibiotics) (Verified Allergy, Unknown, 03/19/20) Home Medications Hydrocodone/Acetaminophen 1 Each Tablet, 1 EACH PO Q4H PRN for PAIN-SEVERE (8-10 ) Prescribed by: VIJI RUIZ on 03/29/20 0943 Ondansetron 4 Mg Tab.rapdis, 4 MG SL Q4H PRN for NAUSEA/VOMITING Prescribed by: VIJI RUIZ on 03/29/20 0942 Patient Home Medication List Home Medication List Reviewed: Yes Review of Systems Review of Systems Constitutional: No chills, No diaphoresis EENTM: No Blurred Vision, No Double Vision Respiratory: Denies Cough, Denies Shortness of Air Cardiovascular: Denies Chest Pain, Denies Lightheadedness Gastrointestinal: See HPI, Abdominal Pain; Denies Constipated, Denies Diarrhea; Nausea, Vomiting Genitourinary: Denies Burning, Denies Discharge Musculoskeletal: No back pain, No joint pain Skin: No pruritus, No rash All Other Systems Reviewed Negative Unless Noted: Yes Past Pfyuebw-Yflwnm-Tltufe Hx Patient Social History Alcohol Use: Denies Use Recreational Drug Use: No Smoking Status: Current Everyday Smoker Type Used: Cigarettes 2nd Hand Smoke Exposure: No Recent Foreign Travel: No Contact w/Someone Who Travel: No Recent Infectious Disease Expo: No Recent Hopitalizations: No Physical Abuse: No Sexual Abuse: No Immunizations Up To Date Tetanus Booster (TDap): Less than 5yrs PED Vaccines UTD: Yes Date of Influenza Vaccine: Dec 27, 2019 Seasonal Allergies Seasonal Allergies: No Past Medical History Surgeries: No Respiratory: No Cardiac: No Neurological: No : 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 oz. kg; 25.00 BMI Method: General Appearance: WD/WN, mild distress HEENT: PERRL/EOMI, pharynx normal Neck: full range of motion, normal inspection Respiratory: lungs clear, normal breath sounds, no respiratory distress, no accessory muscle use Cardiovascular: normal peripheral pulses, regular rate, rhythm Peripheral Pulses: 2+ Radial Pulses (R), 2+ Radial Pulses (L) Gastrointestinal: normal bowel sounds, non tender, soft Extremities: normal range of motion, normal inspection, normal capillary refill Neurologic/Psychiatric: alert, normal mood/affect, oriented x 3 Skin: normal color, warm/dry Progress/Results/Core Measures Results/Orders My Orders Orders - JIMMY FARRELL Calcium Carbonate Tablet (Calcarb 600 Ta (03/30/20 00:30) Famotidine Injection (Pepcid Injection) (03/30/20 00:30) Cbc With Automated Diff (03/30/20:24) Comprehensive Metabolic Panel (03/30/20:24) Ed Iv/Invasive Line Start (03/30/20:24) Ns Iv 500 Ml (Sodium Chloride 0.9%) (03/30/20:24) Morphine Injection (Morphine Injection (03/30/20:24) Ondansetron Injection (Zofran Injectio (03/30/20 00:30) Vital Signs/I&O 03/29/20 23:55 Temp 36.3 Pulse 69 Resp 18 B/P (MAP) 125/58 (80) Pulse Ox 98 Blood Pressure Mean: 80 Progress Progress Note : Time: 00:39 Progress Note Morphine ondansetron 500 of fluids and I will put her on observation under Dr. Asher. Departure Communication (Admissions) Time/Spoke to Admitting Phy: 00:27 Discussed the case with Dr. Asher and he will admit her on the follow his other cases. Nothing by mouth. Pain nausea IV fluids. Impression Primary Impression: Gallstones without obstruction of gallbladder Qualified Codes: K80.20 - Calculus of gallbladder without cholecystitis without obstruction Additional Impression: Biliary colic Disposition: ADMITTED INPATIENT Condition: Stable Admissions Decision to Admit Reason: Admit from ER (General) Decision to Admit/Date: Mar 30, 2020 Time/Decision to Admit Time: 00:20 Departure-Patient Inst. Referrals: NESSA MARADIAGA MD (PCP/Family) Primary Care Physician JIMMY FARRELL Mar 30, 2020 00:33
[2020-03-30 00:38] LABS: BASOPHILS % (AUTO) 0 % (0-10); EOSINOPHILS # (AUTO) 0.1 10^3/uL (0.0-0.3); EOSINOPHILS % (AUTO) 1 % (0-10); HEMATOCRIT 37 % (35-52); HEMOGLOBIN 10.9 g/dL (11.5-16.0); LYMPHOCYTES # (AUTO) 2.7 10^3/uL (1.0-4.0); LYMPHOCYTES % (AUTO) 33 % (12-44); MEAN CORPUSCULAR HEMOGLOBIN 21 pg (25-34); MEAN CORPUSCULAR HGB CONC 30 g/dL (32-36); MEAN CORPUSCULAR VOLUME 71 fL (80-99); MONOCYTES # (AUTO) 0.4 10^3/uL (0.0-1.0); MONOCYTES % (AUTO) 6 % (0-12); NEUTROPHILS # (AUTO) 4.8 10^3/uL (1.8-7.8); NEUTROPHILS % (AUTO) 60 % (42-75); PLATELET COUNT 269 10^3/uL (130-400); WHITE BLOOD COUNT 8.1 10^3/uL (4.3-11.0)
[2020-03-30 00:53] LABS: ALBUMIN 4.1 GM/DL (3.2-4.5); CHLORIDE 107 MMOL/L (98-107); POTASSIUM 3.7 MMOL/L (3.6-5.0); SODIUM 140 MMOL/L (135-145)
[2020-03-30 00:54] LABS: CALCIUM 8.8 MG/DL (8.5-10.1)
[2020-03-30 00:55] LABS: GLUCOSE 84 MG/DL (70-105); TOTAL PROTEIN 7.2 GM/DL (6.4-8.2)
[2020-03-30 00:56] LABS: CARBON DIOXIDE 23 MMOL/L (21-32)
[2020-03-30 00:57] LABS: BILIRUBIN,TOTAL 1.2 MG/DL (0.1-1.0)
[2020-03-30 00:59] LABS: ALKALINE PHOSPHATASE 115 U/L (40-136); CREATININE SERUM 0.86 MG/DL (0.60-1.30); GFR ESTIMATED > 60
[2020-03-30 01:00] LABS: BUN/CREATININE RATIO 8
[2020-03-30 01:02] LABS: ALANINE AMINOTRANSFERASE 150 U/L (0-55)
[2020-03-30 01:05] LABS: LIPASE 32 U/L (8-78)
[2020-03-30] MEDS ORDERED: PROMETHAZINE INJ 25 MG/ML (PHENERGAN) AMP IVP PRN (01:45)
[2020-03-30] MEDS ORDERED: morphine INJ 10 MG/ML 1ML (SYR OR VIAL) IVP PRN ×2 (01:45)
[2020-03-30] MEDS ORDERED: LACTATED RINGERS 1,000 ML IV SCH (01:45)
[2020-03-30] MEDS ORDERED: ONDANSETRON 4 MG/2 ML (SDV) Z0FRAN IVP PRN ×2 (01:45→10:00)
[2020-03-30] MEDS: HYDROmorphone 2 MG/ML VIAL (DILAUDID) IV PRN ×2 (02:30→08:25)
--- NOTE | 2020-03-30 02:59 | NUR ---
AVERY SUMMERS admitted to room 412-1, with an admitting diagnosis of Cholecystitis/gallstones, on 03/30/20 from OR via wheelchair, accompanied by staff.AVERY SUMMERS introduced to surroundings, call light, bed controls, phone, TV, temperature control, lights, meal times, smoking policy, visitor policy, side rail policy, bathrooms and showers. Patient Rights given to patient in the handbook. AVERY SUMMERS verbalizes understanding that [facility] is not responsible for the loss or damage to any personal effects or valuables that are kept in the patients posession during their hospitalization.
[2020-03-30] MEDS ORDERED: PANTOPRAZOLE 40 MG (PROTONIX) VIAL IV SCH (09:00)
--- NOTE | 2020-03-30 09:21 | History & Physical-Surgical ---
History of Present Illness History of Present Illness Reason for visit/HPI Surgery asked to admit pt secondary to increasing pain from Acute cholelithiasis with Cholecystitis HPI per ED: PT CO OF R UPPER ABD PAIN AND BURNING, WAS SEEN IN ED ON 03/29 AND HAS GB PAIN, PT HAS HAD LAB AND ULTRASOUND DONE DURING VISIT. PT WAS TOLD TO COME BACK TO ED FOR PAIN NOT RELIEVED BY HYDROCODONE. Initial Comments patient presents to ER by private conveyance from home with chief complaint of progressive worsening biliary colic. She was worked up earlier yesterday morning and discovered to have gallstones without cholecystitis. Dr. Asher encouraged her to have her gallbladder out she said she would prefer to wait until later in the week to do it. She says unfortunately her pain and nausea is not under control despite ondansetron and hydrocodone. She did take her last dose about 4 hours ago. She ate her last meal around 1999 yesterday. She says she had some p zara salad. She has had no diarrhea or constipation. No fevers or chills.\\ When I saw pt this am she states pain got much worse and had to come back to ER. Date of Admission Mar 30, 2020 at 00:35 Time Seen by a Provider: 09:04 I consulted on this patient on 03/30/20 09:16 Attending Physician Hugo Asher DO Admitting Physician Maggi Varela MD Consult Allergies and Home Medications Allergies Coded Allergies: Sulfa (Sulfonamide Antibiotics) (Verified Allergy, Unknown, 03/19/20) Home Medications Hydrocodone/Acetaminophen 1 Each Tablet, 1 EACH PO Q4H PRN for PAIN-SEVERE (8- 10) Prescribed by: VIJI RUIZ on 03/29/20 0943 Ondansetron 4 Mg Tab.rapdis, 4 MG SL Q4H PRN for NAUSEA/VOMITING Prescribed by: VIJI RUIZ on 03/29/20 0942 Patient Home Medication List Home Medication List Reviewed: Yes Past Shxpzhn-Jtgnhz-Tnccmw Hx Patient Social History Alcohol Use: Denies Use Recreational Drug Use: No Smoking Status: Current Everyday Smoker Type Used: Cigarettes 2nd Hand Smoke Exposure: No Recent Foreign Travel: No Contact w/Someone Who Travel: No Recent Infectious Disease Expo: No Recent Hopitalizations: No Immunizations Up To Date Tetanus Booster (TDap): Less than 5yrs PED Vaccines UTD: Yes Date of Pneumonia Vaccine: Oct 23, 2019 Date of Influenza Vaccine: Feb 22, 2020 Seasonal Allergies Seasonal Allergies: No Surgeries History of Surgeries: No Respiratory History of Respiratory Disorde: No Cardiovascular History of Cardiac Disorders: No Neurological History of Neurological Disord: No 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) HIV/AIDS: Yes (since age 13, is on biktarvy ) Genitourinary History of Genitourinary Disor: No Gastrointestinal History of Gastrointestinal Di: No Musculoskeletal History of Musculoskeletal Dis: No Endocrine History of Endocrine Disorders: No HEENT History of HEENT Disorders: No Cancer History of Cancer: No Psychosocial History of Psychiatric Problem: No Integumentary History of Skin or Integumenta: No Blood Transfusions History of Blood Disorders: No Family Medical History Significant Family History: Other Conditions/Hx (Arthritis and EtOH abuse) Family Medial History: Alcoholism 19 MOTHER Arthritis 19 MOTHER, Onset:40's - 50 Review of Systems Constitutional: chills, malaise, weakness EENTM: No blurred vision, No double vision, No eye pain, No mouth pain, No mouth swelling, No epistaxis Respiratory: No cough, No dyspnea on exertion, No short of breath Cardiovascular: No chest pain, No palpitations Gastrointestinal: RUQ; No jaundice; nausea; No vomiting Genitourinary: No dysuria, No frequency, No hematuria Musculoskeletal: No back pain, No joint pain, No joint swelling Skin: No change in color, No change in hair/nails Psychiatric/Neurological: Denies Anxiety, Denies Depressed, Denies Seizure, Denies Tremors pt denies any hx of abnormal bleeding or bruising Physical Exam Vital Signs Vital Signs - First Documented 03/29/20 03/30/20 23:55 01:35 Temp 36.3 Pulse 69 Resp 18 B/P (MAP) 125/58 (80) Pulse Ox 98 O2 Delivery Room Air Capillary Refill : Less Than 3 Seconds Height, Weight, BMI Height: '" Weight: lbs. oz. kg; 27.30 BMI Method: General Appearance: No Apparent Distress, WD/WN Eyes: Bilateral Eye PERRL, Bilateral Eye EOMI HEENT: Pharynx Normal, Moist Mucous Membranes; No Scleral Icterus (L), No Scleral Icterus (R) Neck: Full Range of Motion, Non Tender, Supple Respiratory: Chest Non Tender, Lungs Clear, Normal Breath Sounds, No Accessory Muscle Use, No Respiratory Distress Cardiovascular: Regular Rate, Rhythm, No Murmur Gastrointestinal: No Organomegaly, Soft, Tenderness Back: No CVA Tenderness, No Vertebral Tenderness Extremity: No Calf Tenderness, No Pedal Edema Neurologic/Psychiatric: Alert, Oriented x3, No Motor/Sensory Deficits, Normal Mood/Affect, 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 Skin: Normal Color, Warm/Dry Lymphatic: No Adenopathy (neck, axilla or groin) Data Review Labs Laboratory Tests 03/30/20 00:30: White Blood Count 8.1, Red Blood Count 5.21H, Hemoglobin 10.9L, Hematocrit 37, Mean Corpuscular Volume 71L, Mean Corpuscular Hemoglobin 21L, Mean Corpuscular Hemoglobin Concent 30L, Red Cell Distribution Width 21.3H, Platelet Count 269, Mean Platelet Volume 10.0, Immature Granulocyte % (Auto) 0, Neutrophils (%) (Auto) 60, Lymphocytes (%) (Auto) 33, Monocytes (%) (Auto) 6, Eosinophils (%) (Auto) 1, Basophils (%) (Auto) 0, Neutrophils # (Auto) 4.8, Lymphocytes # (Auto) 2.7, Monocytes # (Auto) 0.4, Eosinophils # (Auto) 0.1, Basophils # (Auto) 0.0, Immature Granulocyte # (Auto) 0.0, Sodium Level 140, Potassium Level 3.7, Chloride Level 107, Carbon Dioxide Level 23, Anion Gap 10, Blood Urea Nitrogen 7, Creatinine 0.86, Estimat Glomerular Filtration Rate > 60, BUN/Creatinine Ratio 8, Glucose Level 84, Calcium Level 8.8, Corrected Calcium 8.7, Total Bilirubin 1.2H, Aspartate Amino Transf (AST/SGOT) 140H, Alanine Aminotransferase (ALT/SGPT) 150H, Alkaline Phosphatase 115, Total Protein 7.2, Albumin 4.1, Lipase 32 03/30/20 02:20: Coronavirus 2019 ([facility]) Negative Assessment/Plan Assessment/Plan Admission Diagonsis Cholelithiasis with Cholecystits, r/o Choledochalithiasis Admission Status: Observation Assessment/Plan Cholelithiasis with Cholecystits, r/o Choledochalithiasis Plan to OR for Laparoscopic Cholecystectomy with possible cholangiogram and possible open. Discussed all risks and complications; not limited to pain, bleeding, infection, scar, damage to bowel or bile duct and need for further procedure. All questions answered to her satisfaction. Clinical Quality Measures DVT/VTE Risk/Contraindication: Risk Factor Score Per Nursin RFS Level Per Nursing on Admit: 2=Moderate HUGO ASHER DO Mar 30, 2020 09:21
[2020-03-30] MEDS ORDERED: diphenhydrAMINE 50 MG/ML INJ (BENADRYL) IVP PRN (09:30)
[2020-03-30] MEDS ORDERED: LACTATED RINGERS 1,000 ML IV PRN (09:50)
[2020-03-30] MEDS ORDERED: SEVOFLURANE (ULTANE) 15 ML INHAL SOLN ONE ×2 (09:56→11:34)
[2020-03-30] MEDS ORDERED: ROCURONIUM 10 MG/ML 5 ML SYRINGE IV ONE (09:56)
[2020-03-30] MEDS ORDERED: fentaNYL INJECTION 100 MCG/2 ML AMP ONE (09:56)
[2020-03-30] MEDS ORDERED: proPOfol 200 MG/20 ML (DIPRIVAN) VIAL IV ONE (09:56)
[2020-03-30] MEDS ORDERED: ONDANSETRON 4 MG/2 ML (SDV) Z0FRAN ONE (09:56)
[2020-03-30] MEDS ORDERED: LIDOCAINE PF 2% 5 ML (XYLOCAINE) VIAL ONE (09:56)
[2020-03-30] MEDS ORDERED: MIDAZOLAM 2 MG/2 ML (VERSED) VIAL ONE (09:56)
[2020-03-30] MEDS ORDERED: fentaNYL INJECTION 100 MCG/2 ML AMP IVP ONE (10:00)
[2020-03-30] MEDS ORDERED: MEPERIDINE (DEMEROL) INJ 50 MG/ML IVP ONE (10:00)
[2020-03-30] MEDS ORDERED: morphine INJ 10 MG/ML 1ML (SYR OR VIAL) IVP ONE (10:00)
[2020-03-30] MEDS ORDERED: PROMETHAZINE INJ 25 MG/ML (PHENERGAN) AMP IVP ONE (10:00)
[2020-03-30] MEDS ORDERED: WATER (STERILE) FOR INJECTION 40 ML ONE (10:18)
[2020-03-30] MEDS ORDERED: IOPAMIDOL 61% 30 ML (ISOVUE 300) VIAL ONE (10:18)
[2020-03-30] MEDS ORDERED: ceFAZolin INJECTION 2,000 MG ONE (10:18)
[2020-03-30] MEDS ORDERED: LIDOCAINE/EPI 1%-1:100,000 (XYLOCAINE) 20ML ONE (10:19)
[2020-03-30] MEDS ORDERED: GLYCOPYRROLATE 0.2 MG/ML (ROBINUL) 2 ML VIAL ONE (11:16)
[2020-03-30] MEDS ORDERED: NEOSTIGMINE 3 MG/3 ML VIAL ONE (11:16)
--- NOTE | 2020-03-30 11:47 | Progress Note-Post Operative ---
Post-Operative Progess Note Surgeon (s)/Store Clerk Checker (s) Surgeon HUGO MORALES DO Store Clerk Checker: Nikita Pre-Operative Diagnosis Acute Una/Una with possible choledochalithiasis Post-Operative Diagnosis Acute Una/Una with choledochalithiasis Procedure & Operative Findings Date of Procedure 03/30/20 Procedure Performed/Findings PROCEDURE: Laparoscopic cholecystectomy with intraoperative cholangiogram. COMPLICATIONS: None. PROCEDURE: The patient was taken to the operating suite and was prepped and draped in sterile fashion. A surgical pause was performed. Just superior to the umbilicus, a 12 mm incision was made. Dissection was taken down to the fascia, which was then scored and grasped with a Kadie and the abdomen was then entered. A 0 Vicryl suture was placed in a [id number] fashion and a Cisneros trocar was placed and secured. Pneumoperitoneum was achieved. A 5mm trochar place in the subxyphoid and 2 in the right lower quadrant. There were adhesions to the gallbladder; which usually indicates previous gallbladder attacks. There was also a significant amout of edema around the gallbladder. The gallbladder was then grasped and elevated. The cystic duct, and cystic artery were then dissected out. Clip was placed on the distal portion of the cystic duct which was then partially transected. An arrow catheter was inserted into the duct. The cholangiogram was then performed. A stone was seen freely floating in the CBD (which was also slightly dilated); however, contrastmade its way into the duodenum. Catheter removed. Three clips were placed on proximal portion of the cystic duct and then the duct was then transected. Clips were placed along the proximal and distal portion of the cystic artery which was then transected. Hook cautery was used to dissect the gallbladder from the gallbladder fossa achieving hemostasis. The gallbladder was placed in an Endobag and removed through the 12 mm trocar site. The abdomen was then reinspected. Copious amounts of irrigation were used to irrigate the abdomen and there were no signs of active bleeding. Hemostasis had been achieved. The 12 mm fascial defect was then closed with 0 Vicryl suture that had been placed in a [id number] fashion. The abdomen was then desufflated, the trocars were removed. The abdomen was then washed and dried. The skin was then closed using 4-0 Monocryl in a subcuticular fashion. The abdomen was washed and dried and Skin Affix was place over incisions. Patient tolerated the procedure well without any complications and was taken to the recovery room in stable condition. Dr. Shelton assisted on this case helping to make incisions and close incisions, as well as identify anatomy and hold anatomy out of the way. Anesthesia Type GET Estimated Blood Loss Estimated blood loss (mL): scant Specimens/Packing Specimens Removed GB and contents HUGO MORALES DO Mar 30, 2020 11:47
--- NOTE | 2020-03-30 11:52 | Discharge Inst-Surgical ---
Discharge Inst-Surgical Depart Medication/Instructions New, Converted or Re-Newed RX: Other (Pt has pain meds at home) Patient Instructions Follow up Appt: Make appointment for 1 week. [phone] Instructions: No lifting greater than 20 pounds. No strenuous activity. May shower in 24 hours, no tub bath or soaking. Use incentive spirometer at home as directed. No Smoking Skin/Wound Care: May remove bandages in am. You need to leave the Dermabond on incision it will fall off on it's own. Symptoms to Report: Appetite Changes, Extremity Discoloration, Numbness/Tingling, Swelling Increased, Bleeding Excessive, Eyesight Changes, Pain Increased, Urine Color Change, Constipation(Persistent), Fever over 101 degree F, Pain/Pressure in chest, Urinating Difficulty, Cough Up/Vomit Blood, Heart Beat Irreg/Pounding, Pain/Pressure in jaw, Cramps in feet or legs, Lightheadedness, Pain/Pressure in shoulder, Diarrhea(Persistent), Memory Changes Suddenly, Questions/Concerns, Weight gain consecutive days, Dizziness/Fainting, Nausea/Vomiting, Shortness of Breath, Weight gain over 2 pounds If questions or concerns contact your physician Or seek help at emergency department. Activity Activity as Tolerated: Yes Activity Instructions: Avoid Stress to Incision Driving Instructions: No Driving/Refer to Diet Discharge Diet: Avoid Fatty Foods, Low Fat/Low Cholesterol Diet After 24 Hours: Clear Liquid if Nauseous If Any Problems/Questions/Issu: Contact Your Physician, Go to Emergency Room Skin/Wound Care Infection Signs and Symptoms: Increased Redness, Foul Odor of Wound, Increased Drainage, Skin Itchy or Has a Rash, Increased Swelling, Temperature Above 101 F Wound Care Comment: heatin pad to shoulder or neck tonight for pain Bathing Instructions: Shower Stitches/[place]/Dermabond Dis: Dermabond Ice Pack: Ice On and Off Site (at incision sites as needed for pain) HUGO MORALES DO Mar 30, 2020 11:52
--- NOTE | 2020-03-30 12:25 | Diagnostic Imaging Report ---
INDICATION: Cholecystectomy EXAM: 11 seconds of fluoroscopy time were utilized during intraoperative cholangiography. FINDINGS: There is a filling defect within the distal common bile duct which did not obstruct the lumen. Its diameter is about the same width as the endoscopy device visualized in the [id number]. IMPRESSION: Film shows a filling defect, likely a distal common duct stone without its obstruction of uncertain diameter but matching the width of the surgical device included in the [id number]. Dictated by: Dictated on workstation # [id number]
--- NOTE | 2020-03-30 12:40 | NUR ---
Patient back from surgery at this time. alert and orientated on room air. 4 lap sites noted on abdomen, ice pack applied to abdomen. patient requesting pain medication at this time, home prescription of hydrocodone will be given since patient is to discharge this afternoon. clear liquid diet ordered, Incentive spirometer started, and patient encouraged to ambulate in order to go home
[2020-03-30] MEDS ORDERED: HYDROcodone/APAP 5 MG/325 MG (LORTAB) TAB PO PRN (13:00)
[2020-03-30] MEDS ORDERED: OXYC1TAB87 PO (22:43)
[2020-03-30] MEDS ORDERED: PROM25TA14 PO (22:43)
== END 2020-03-30 13:40 | disposition home or self-care (01) ==
LOC: EDUNIT# 23:44 → ER 23:46 → SDC 23:47 → 4TH 23:47 → UNDOADMOB 03-30 00:35 → 4TH 03-30 00:35 → UNDODISOB 03-30 13:40 → SDC 03-30 13:40
PROVIDERS: ATTEND Surgery
DX: K80.12 Calculus of gallbladder with acute and chronic cholecystitis without obstruction (principal); J45.909 Unspecified asthma, uncomplicated; F17.210 Nicotine dependence, cigarettes, uncomplicated; Z20.828 Contact with and (suspected) exposure to other viral communicable diseases; Z88.2 Allergy status to sulfonamides
CPT/HCPCS: 47563; 76000; 80053; 83690; 85025; 87081; 88304; 96374; 96375; 99284; U0002; 36415; 87635

== ENCOUNTER 2020-03-30 21:15 | Emergency (ER) | payer MEDICAID ==
[~2020-03-30] VITALS: Ht 162.6 cm; Wt 68.0 kg
[2020-03-30] MEDS ORDERED: morphine INJ 10 MG/ML 1ML (SYR OR VIAL) IVP STA (21:31)
--- NOTE | 2020-03-30 21:38 | ED Abdominal Pain ---
General Chief Complaint: Post OP Complications/Pain Stated Complaint: POST OP PAIN -- GALLBLADDER Nursing Triage Note: PT AMBULATE TO ROOM 07 WITH C/O PAIN AFTER HAVING GALLBLADDER REMOVED THIS MORNING. PT STATES THAT THE PAIN MEDS PRESCRIBED ARE NOT HELPING. Sepsis Screen: No Definite Risk Source of Information: Patient Exam Limitations: No Limitations History of Present Illness Date Seen by Provider: Mar 30, 2020 Time Seen by Provider: 21:18 Initial Comments Patient presents to ER by private conveyance with chief complaint she is same day status post cholecystectomy laparoscopic by Dr. Morales. She was sent home with ondansetron and hydrocodone. She says she's even tried taking to the hydrocodone without adequate relief of pain. She is able to keep a little soup down but her nausea is only partially controlled by the ondansetron. She says she has problems in the past with fentanyl only lasting about 10 minutes. She s ays morphine lasts longer. She's not having any fevers chills diarrhea or constipation. She is not having any warmth redness or discharge around the wounds. She denies recreational use of opiates, heroin etc. she does have a history of HIV. Allergies and Home Medications Allergies Coded Allergies: Sulfa (Sulfonamide Antibiotics) (Verified Allergy, Unknown, 03/19/20) Home Medications Hydrocodone/Acetaminophen 1 Each Tablet, 1 EACH PO Q4H PRN for PAIN-SEVERE (8- 10) Prescribed by: VIJI RUIZ on 03/29/20 0943 Ondansetron 4 Mg Tab.rapdis, 4 MG SL Q4H PRN for NAUSEA/VOMITING Prescribed by: VIJI RUIZ on 03/29/20 0942 Patient Home Medication List Home Medication List Reviewed: Yes Review of Systems Review of Systems Constitutional: No chills, No diaphoresis, No fever EENTM: No Blurred Vision, No Double Vision Respiratory: Denies Cough, Denies Shortness of Air Cardiovascular: Denies Chest Pain, Denies Edema, Denies Lightheadedness Gastrointestinal: See HPI, Abdominal Pain; Denies Constipated, Denies Diarrhea; Nausea; Denies Vomiting Genitourinary: Denies Burning, Denies Discharge Musculoskeletal: No back pain, No joint pain Skin: No pruritus, No rash All Other Systems Reviewed Negative Unless Noted: Yes Past Tnbtytk-Lfcsvm-Pvadpc Hx Patient Social History Alcohol Use: Denies Use Recreational Drug Use: No Smoking Status: Current Everyday Smoker Type Used: Cigarettes 2nd Hand Smoke Exposure: No Recent Foreign Travel: No Contact w/Someone Who Travel: No Recent Infectious Disease Expo: No Recent Hopitalizations: No Immunizations Up To Date Tetanus Booster (TDap): Less than 5yrs PED Vaccines UTD: Yes Date of Pneumonia Vaccine: Oct 23, 2019 Date of Influenza Vaccine: Feb 22, 2020 Seasonal Allergies Seasonal Allergies: No Past Medical History Surgeries: No Respiratory: No Cardiac: No Neurological: No HIV/AIDS: Yes (since age 13, is on biktarvy ) Genitourinary: No Gastrointestinal: No Musculoskeletal: No Endocrine: No HEENT: No Cancer: No Psychosocial: No Integumentary: No Blood Disorders: No Family Medical History Alcoholism 19 MOTHER Arthritis 19 MOTHER, Onset:40's - 50 Other Conditions/Hx Physical Exam Vital Signs Vital Signs - First Documented 03/30/20 21:27 Temp 36.8 Pulse 76 Resp 18 B/P (MAP) 120/66 (84) O2 Delivery Room Air Capillary Refill : Less Than 3 Seconds Height/Weight/BMI Height: '" Weight: lbs. oz. 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, no motor/sensory deficits, alert Skin: normal color, warm/dry Progress/Results/Core Measures Results/Orders Lab Results Laboratory Tests Test 03/30/20 21:36 Range/Units White Blood Count 4.2 L 4.3-11.0 10^3/uL Red Blood Count 4.96 3.80-5.11 10^6/uL Hemoglobin 10.6 L 11.5-16.0 g/dL Hematocrit 35 35-52 % Mean Corpuscular Volume 71 L 80-99 fL Mean Corpuscular Hemoglobin 21 L 25-34 pg Mean Corpuscular Hemoglobin Concent 30 L 32-36 g/dL Red Cell Distribution Width 21.1 H 10.0-14.5 % Platelet Count 255 130-400 10^3/uL Mean Platelet Volume 10.0 9.0-12.2 fL Immature Granulocyte % (Auto) 0 % Neutrophils (%) (Auto) 85 H 42-75 % Lymphocytes (%) (Auto) 14 12-44 % Monocytes (%) (Auto) 1 0-12 % Eosinophils (%) (Auto) 0 0-10 % Basophils (%) (Auto) 0 0-10 % Neutrophils # (Auto) 3.5 1.8-7.8 10^3/uL Lymphocytes # (Auto) 0.6 L 1.0-4.0 10^3/uL Monocytes # (Auto) 0.0 0.0-1.0 10^3/uL Eosinophils # (Auto) 0.0 0.0-0.3 10^3/uL Basophils # (Auto) 0.0 0.0-0.1 10^3/uL Immature Granulocyte # (Auto) 0.0 0.0-0.1 10^3/uL Sodium Level 140 135-145 MMOL/L Potassium Level 4.0 3.6-5.0 MMOL/L Chloride Level 109 H 98-107 MMOL/L Carbon Dioxide Level 22 21-32 MMOL/L Anion Gap 9 5-14 MMOL/L Blood Urea Nitrogen 6 L 7-18 MG/DL Creatinine 0.82 0.60-1.30 MG/DL Estimat Glomerular Filtration Rate > 60 BUN/Creatinine Ratio 7 Glucose Level 151 H 70-105 MG/DL Calcium Level 9.0 8.5-10.1 MG/DL Corrected Calcium 8.8 8.5-10.1 MG/DL Total Bilirubin 0.4 0.1-1.0 MG/DL Aspartate Amino Transf (AST/SGOT) 66 H 5-34 U/L Alanine Aminotransferase (ALT/SGPT) 123 H 0-55 U/L Alkaline Phosphatase 99 40-136 U/L Total Protein 7.6 6.4-8.2 GM/DL Albumin 4.2 3.2-4.5 GM/DL Lipase 13 8-78 U/L My Orders Orders - JIMMY FARRELL Morphine Injection (Morphine Injection (03/30/20 21:31) Promethazine Injection (Phenergan Injec (03/30/20 21:45) Lactated Ringers (Lr 1000 Ml Iv Solution (03/30/20 21:45) Cbc With Automated Diff (03/30/20 21:31) Comprehensive Metabolic Panel (03/30/20 21:31) Lipase (03/30/20 21:31) Pantoprazole Injection (Protonix Injecti (03/30/20 21:45) Rx-Oxycodone/Apap 5-325 Mg (Rx-Percocet (03/30/20 22:30) Medications Given in ED Current Medications Medications Dose Ordered Sig/Pablo Route Start Time Stop Time Status Last Admin Dose Admin Pantoprazole 40 mg ONCE ONCE IV 03/30/20 21:45 03/30/20 21:46 DC 03/30/20 21:43 40 MG Promethazine HCl 25 mg ONCE ONCE IVP 03/30/20 21:45 03/30/20 21:46 DC 03/30/20 21:43 25 MG Vital Signs/I&O 03/30/20 21:27 Temp 36.8 Pulse 76 Resp 18 B/P (MAP) 120/66 (84) O2 Delivery Room Air Blood Pressure Mean: 84 Progress Progress Note #1: Time: 21:37 Progress Note Suspect she's had some postop pain. Discussed the case with Dr. Morales, General Surgery and he said she did have a free-floating common bile duct stone so he would recommend rechecking a bilirubin level. We are going to give her some mo rphine and Phenergan as well as a liter of fluids as she appears a little bit on the dry side on clinical exam. She is not tachycardic and has aseptic vital signs. If her labs are okay and her symptoms are under control we'll set her up for some Percocet and see if that doesn't help her. I suspect she may be a rapid metabolizer as she gets very good control with fentanyl but it does not last for more than 10 minutes. Progress Note #2: Time: 22:41 Progress Note Pain is significantly decreased and her nausea is gone. Plan to send her out with some Phenergan and Percocets as an alternative to hydrocodone she has controls her pain better. She is to follow-up with general surgery. Departure Impression Primary Impression: Postoperative abdominal pain Disposition: HOME, SELF-CARE Condition: Stable Departure-Patient Inst. Decision time for Depature: 22:41 Referrals: NESSA MARADIAGA MD (PCP) Primary Care Physician HUGO MORALES DO Patient Instructions: Opioids for Short-Term Treatment of Pain, Postoperative Pain (DC) Add. Discharge Instructions: Your pain should improve over the next day or 2. Plan follow-up with Dr. Morales next week if you're not seeing some improvement. Trial of Percocet 1 tablet every 4 hours as necessary for breakthrough pain. Do not expect to be pain-free for the first week. Continue to adhere to the diet prescribed by your surgeon. Continue to use Zofran for nausea and if that does not work you may add Phenergan. One tablet every 6 hours. Scripts Promethazine HCl (Promethazine Tablet) 25 Mg Tablet 25 MG PO Q6H PRN for NAUSEA/VOMITING for 3 Days, #15 TAB 0 Refills Prov: JIMMY FARRELL 03/30/20 Work/School Note: Work Release Form Date Seen in the Emergency Department: Mar 30, 2020 Return to Work: Apr 08, 2020 JIMMY FARRELL Mar 30, 2020 21:38
[2020-03-30 21:44] LABS: BASOPHILS % (AUTO) 0 % (0-10); EOSINOPHILS % (AUTO) 0 % (0-10); HEMATOCRIT 35 % (35-52); HEMOGLOBIN 10.6 g/dL (11.5-16.0); LYMPHOCYTES # (AUTO) 0.6 10^3/uL (1.0-4.0); LYMPHOCYTES % (AUTO) 14 % (12-44); MEAN CORPUSCULAR HEMOGLOBIN 21 pg (25-34); MEAN CORPUSCULAR HGB CONC 30 g/dL (32-36); MEAN CORPUSCULAR VOLUME 71 fL (80-99); MONOCYTES % (AUTO) 1 % (0-12); NEUTROPHILS # (AUTO) 3.5 10^3/uL (1.8-7.8); NEUTROPHILS % (AUTO) 85 % (42-75); PLATELET COUNT 255 10^3/uL (130-400); WHITE BLOOD COUNT 4.2 10^3/uL (4.3-11.0)
[2020-03-30] MEDS ORDERED: PANTOPRAZOLE 40 MG (PROTONIX) VIAL IV ONE (21:45)
[2020-03-30] MEDS ORDERED: LACTATED RINGERS 1,000 ML IV SCH (21:45)
[2020-03-30] MEDS ORDERED: PROMETHAZINE INJ 25 MG/ML (PHENERGAN) AMP IVP ONE (21:45)
[2020-03-30 22:00] LABS: ALANINE AMINOTRANSFERASE 123 U/L (0-55); ALBUMIN 4.2 GM/DL (3.2-4.5); ALKALINE PHOSPHATASE 99 U/L (40-136); BILIRUBIN,TOTAL 0.4 MG/DL (0.1-1.0); BUN/CREATININE RATIO 7; CARBON DIOXIDE 22 MMOL/L (21-32); CHLORIDE 109 MMOL/L (98-107); CREATININE SERUM 0.82 MG/DL (0.60-1.30); GFR ESTIMATED > 60; GLUCOSE 151 MG/DL (70-105); LIPASE 13 U/L (8-78); SODIUM 140 MMOL/L (135-145); TOTAL PROTEIN 7.6 GM/DL (6.4-8.2)
[2020-03-30] MEDS ORDERED: RX-OXYCODONE/APAP 5-325 MG #4 TAB PK PO PRN (22:30)
[2020-03-30] MEDS ORDERED: PROM25TA14 PO (22:43)
[2020-03-30] MEDS ORDERED: OXYC1TAB87 PO (22:43)
--- NOTE | 2020-03-30 22:53 | NUR ---
2253 RN-OXYCODONE 5/325 TAKE HOME PACK ADMINISTERED TO PT.
[2020-03-30 22:54] VITALS: BP 124/70
--- NOTE | 2020-03-31 09:42 | Anesthesia-General Post-Op ---
General Patient Condition Mental Status/LOC: Same as Preop Cardiovascular: Satisfactory Nausea/Vomiting: Absent Respiratory: Satisfactory Pain: Controlled Complications: Absent Post Op Complications Complications None Follow Up Care/Instructions Patient Instructions None needed. Anesthesia/Patient Condition Patient Condition Patient is doing well, no complaints, stable vital signs, no apparent adverse anesthesia problems. No complications reported per nursing. DANILO ARMENTA CRNA Mar 31, 2020 09:42
== END 2020-03-30 22:53 | disposition home or self-care (01) ==
LOC: EDUNIT# 21:15 → ER 21:16
DX: G89.18 Other acute postprocedural pain (principal); R10.11 Right upper quadrant pain; F17.210 Nicotine dependence, cigarettes, uncomplicated; Z88.2 Allergy status to sulfonamides; Z98.890 Other specified postprocedural states; Z79.899 Other long term (current) drug therapy
CPT/HCPCS: 36415; 80053; 83690; 85025; 99283

== ENCOUNTER 2020-08-28 17:21 | Emergency (ER) | payer MEDICAID ==
[~2020-08-28] VITALS: Ht 162.6 cm; Wt 76.2 kg
[~2020-08-28 17:21] MED LIST changes: +OXYC1TAB87 PO; +PROM25TA14 PO
[2020-08-28 17:35] VITALS: BP 117/75
--- NOTE | 2020-08-28 17:58 | ED Cough/URI ---
General Chief Complaint: Cough/Cold/Flu Symptoms Stated Complaint: COUGH / CONGESTION Nursing Triage Note: PT AMBULATE TO TRIAGE WITH C/O COUGH AND STUFFY NOSE. PT REPORTS TAKING TYLENOL COLD MED ONCE X2 DAYS AGO. Sepsis Screen: No Definite Risk History of Present Illness Date Seen by Provider: Aug 28, 2020 Time Seen by Provider: 17:35 Initial Comments 20-year-old female presents for cough and congestion. She reports getting bronchitis once to twice a year. She took Tylenol cough and cold one time with minimal improvement in her symptoms. She is not currently taking any medication she does report a history of smoking. No known Covid exposure and she has not lost taste or smell. She denies running a fever. Timing/Duration: yesterday Severity/Quality: productive cough Prior Episodes/Possible Cause: occasional episodes Modifying Factors: Improves With Rest Associated Symptoms: chest pain/soreness, cough, nasal congestion, nasal drainage Allergies and Home Medications Allergies Coded Allergies: Sulfa (Sulfonamide Antibiotics) (Verified Allergy, Unknown, 03/19/20) Home Medications Hydrocodone/Acetaminophen 1 Each Tablet, 1 EACH PO Q4H PRN for PAIN-SEVERE (8- 10) Prescribed by: VIJI RUIZ on 03/29/20 0943 Ondansetron 4 Mg Tab.rapdis, 4 MG SL Q4H PRN for NAUSEA/VOMITING Prescribed by: VIJI RUIZ on 03/29/20 0942 Oxycodone HCl/Acetaminophen 1 Each Tablet, 1 TAB PO Q4H PRN for PAIN- BREAKTHROUGH Prescribed by: JIMMY FARRELL on 03/30/20 2244 Promethazine HCl 25 Mg Tablet, 25 MG PO Q6H PRN for NAUSEA/VOMITING Prescribed by: JIMMY FARRELL on 03/30/20 2243 Patient Home Medication List Home Medication List Reviewed: Yes Review of Systems Review of Systems Constitutional: no symptoms reported, see HPI EENTM: no symptoms reported, nose congestion Respiratory: see HPI, cough; No short of breath Cardiovascular: no symptoms reported, see HPI Gastrointestinal: no symptoms reported, see HPI Genitourinary: no symptoms reported, see HPI All Other Systems Reviewed Negative Unless Noted: Yes Past Mhnecav-Riuhoo-Rfrkni Hx Past Med/Social Hx: Reviewed Nursing Past Med/Soc Hx Patient Social History Alcohol Use: Rarely Uses Smoking Status: Current Everyday Smoker Type Used: Cigarettes 2nd Hand Smoke Exposure: No Recent Infectious Disease Expo: No Recent Hopitalizations: No Immunizations Up To Date Tetanus Booster (TDap): Less than 5yrs PED Vaccines UTD: Yes Date of Pneumonia Vaccine: Oct 23, 2019 Date of Influenza Vaccine: Feb 22, 2020 Seasonal Allergies Seasonal Allergies: No Past Medical History Surgeries: No Respiratory: No Cardiac: No Neurological: No HIV/AIDS: Yes (since age 13, is on biktarvy ) Genitourinary: No Gastrointestinal: No Musculoskeletal: No Endocrine: No HEENT: No Cancer: No Psychosocial: No Integumentary: No Blood Disorders: No Family Medical History Alcoholism 19 MOTHER Arthritis 19 MOTHER, Onset:40's - 50 Other Conditions/Hx Physical Exam Vital Signs - First Documented 08/28/20 17:35 Temp 35.8 Pulse 90 Resp 17 B/P (MAP) 117/75 (89) O2 Delivery Room Air Capillary Refill : Less Than 3 Seconds Height: '" Weight: lbs. oz. kg; 28.00 BMI Method: General Appearance: WD/WN, no apparent distress Eyes: Bilateral Eye Normal Inspection, Bilateral Eye PERRL, Bilateral Eye EOMI HEENT: PERRL/EOMI, normal ENT inspection, TMs normal, pharynx normal, other (No sinus tenderness) Neck: non-tender, full range of motion, supple, normal inspection Respiratory: chest non-tender, lungs clear, normal breath sounds, no respiratory distress Cardiovascular: normal peripheral pulses, regular rate, rhythm Gastrointestinal: normal bowel sounds, non tender, soft Extremities: normal range of motion, non-tender, normal inspection, no pedal edema, no calf tenderness, normal capillary refill Neurologic/Psychiatric: no motor/sensory deficits, alert, normal mood/affect, oriented x 3 Skin: normal color, warm/dry Progress/Results/Core Measures Suspected Sepsis Recent Fever Within 48 Hours: No Infection Criteria Present: None New/Unexplained Altered Menta: No Sepsis Screen: No Definite Risk SIRS Temperature: Pulse: 90 Respiratory Rate: 17 Blood Pressure 117 /75 Mean: 89 Results/Orders Vital Signs/I&O 08/28/20 08/28/20 17:35 17:38 Temp 35.8 Pulse 90 Resp 17 B/P (MAP) 117/75 (89) O2 Delivery Room Air Room Air Capillary Refill : Less Than 3 Seconds Blood Pressure Mean: 89 Departure Impression Primary Impression: Viral upper respiratory infection Disposition: 01 HOME, SELF-CARE Condition: Improved (ERASED) Departure-Patient Inst. Decision time for Depature: 17:50 Referrals: NESSA MARADIAGA MD (PCP/Family) Primary Care Physician Patient Instructions: Cough, Adult (DC), Cough, Runny Nose, and the Common Cold (DC) Add. Discharge Instructions: Use Afrin nasal spray for 3 days and then discontinue. Use Robitussin or Delsym for cough. You may take Tylenol cough and cold as needed. You may take ibuprofen every 8 hours, 600 mg. Follow-up with your primary care provider at a walk-in care if your symptoms are not improving or worsen over the next week. Consider using a sinus irrigation system for the congestion. You may take Zyrtec or Claritin [id number] for allergy symptoms. Return to the emergency department for new, urgent healthcare needs. All discharge instructions reviewed with patient and/or family. Voiced understanding. Work/School Note: Work Release Form Date Seen in the Emergency Department: Aug 28, 2020 Return to Work: Aug 29, 2020 Restrictions: No Restrictions JHONATAN RODRÍGUEZ Aug 28, 2020 17:58
== END 2020-08-28 18:01 | disposition home or self-care (01) ==
LOC: EDUNIT# 17:21 → ER 17:22
DX: J06.9 Acute upper respiratory infection, unspecified (principal); F17.210 Nicotine dependence, cigarettes, uncomplicated; Z88.2 Allergy status to sulfonamides
CPT/HCPCS: 99282

== ENCOUNTER 2021-05-12 19:54 | Emergency (ER) | payer MEDICAID ==
--- NOTE | 2021-05-12 20:36 | ED General ---
General Chief Complaint: Cough/Cold/Flu Symptoms Stated Complaint: SINUS CONGESTION/HEADACHE/SORE THROAT Nursing Triage Note: TO ED VIA POV WITH C/O SINUS CONGESTION, H/A FOR 3 DAYS. DENIES COUGH OR FEVER. STATES HAS BEEN TYLENOL COLD & FLU AND ADVIL COLD & FLU AND STATES IT ISN'T WORKING AND REQUESTS "SOMETHING STRONGER". Source of Information: Patient Exam Limitations: No Limitations (STORMY LAROSE APRN) History of Present Illness Date Seen by Provider: May 12, 2021 Time Seen by Provider: 20:34 Initial Comments To ER with sinus congestion and headache for 3 days. No cough or fever. Has been using Tylenol and ibuprofen for her headache but not much relief. Timing/Duration: 2-3 Days Severity: Moderate Associated Systoms: Headaches (STORMY LAROSE APRN) Allergies and Home Medications Allergies Coded Allergies: Sulfa (Sulfonamide Antibiotics) (Verified Allergy, Unknown, 03/19/20) Patient Home Medication List Home Medication List Reviewed: Yes (STORMY LAROSE APRN) D-Methorphan Hb/P-Epd HCl/Bpm (Bromfed Dm Cough Syrup) 118 Ml Syrup, 5 ML PO Q4H Prescribed by: STORMY LAROSE on 05/12/21 2110 Hydrocodone/Acetaminophen (Hydrocodone-Acetamin 5-325 mg) 1 Each Tablet, 1 EACH PO Q4H PRN for PAIN-SEVERE (8-10) Prescribed by: VIJI RUIZ on 03/29/20 0943 Ondansetron (Ondansetron Odt) 4 Mg Tab.rapdis, 4 MG SL Q4H PRN for NAUSEA/VOMITING Prescribed by: VIJI RUIZ on 03/29/20 0942 Oxycodone HCl/Acetaminophen (Percocet 5-325 mg Tablet) 1 Each Tablet, 1 TAB PO Q4H PRN for PAIN-BREAKTHROUGH Prescribed by: JIMMY FARRELL on 03/30/20 224 Promethazine HCl (Promethazine Tablet) 25 Mg Tablet, 25 MG PO Q6H PRN for NAUSEA/VOMITING Prescribed by: JIMMY FARRELL on 03/30/20 224 Review of Systems Review of Systems Constitutional: see HPI EENTM: see HPI Respiratory: see HPI Cardiovascular: no symptoms reported Genitourinary: no symptoms reported Musculoskeletal: no symptoms reported Skin: no symptoms reported Psychiatric/Neurological: No Symptoms Reported Hematologic/Lymphatic: No Symptoms Reported (STORMY LAROSE APRN) Past Xovjulb-Qopyeu-Kjsaji Hx Immunizations Up To Date Tetanus Booster (TDap): Less than 5yrs PED Vaccines UTD: Yes Influenza Vaccine Up-to-Date: No; Not Current (STORMY LAROSE APRN) Seasonal Allergies Seasonal Allergies: No (STORMY LAROSE APRN) Past Medical History Surgery/Hospitalization HX: SX: [facility] Surgeries: No Respiratory: No Cardiac: No Neurological: No HIV/AIDS: Yes (since age 13, is on biktarvy ) Genitourinary: No Gastrointestinal: No Musculoskeletal: No Endocrine: No HEENT: No Cancer: No Psychosocial: No Integumentary: No Blood Disorders: No (STORMY LAROSE APRN) Family Medical History Alcoholism 19 MOTHER Arthritis 19 MOTHER, Onset:40's - 50 Other Conditions/Hx (STORMY LAROSE APRN) Physical Exam Vital Signs Vital Signs - First Documented 05/12/21 20:15 Temp 37.0 Pulse 99 Resp 16 B/P (MAP) 134/84 (101) Pulse Ox 98 O2 Delivery Room Air (AVA,FELIX K DO) Vital Signs Capillary Refill : Less Than 3 Seconds (STORMY LAROSE APRN) Height, Weight, BMI Height: '" Weight: lbs. oz. kg; 28.00 BMI Method: General Appearance: No Apparent Distress, WD/WN Eyes: Bilateral Eye Normal Inspection, Bilateral Eye PERRL, Bilateral Eye EOMI HEENT: PERRL/EOMI, TMs Normal Neck: Full Range of Motion, Normal Inspection Respiratory: No Accessory Muscle Use, No Respiratory Distress Gastrointestinal: Normal Bowel Sounds, Non Tender, Soft Extremity: Normal Capillary Refill, Normal Inspection Neurologic/Psychiatric: Alert, Oriented x3 Skin: Normal Color, Warm/Dry (STORMY LAROSE APRN) Progress/Results/Core Measures Suspected Sepsis SIRS Temperature: Pulse: 99 Respiratory Rate: 16 Blood Pressure 134 /84 Mean: 101 (STORMY LAROSE APRN) Results/Orders Lab Results Laboratory Tests Test 05/12/21 20:20 Range/Units Influenza Type A (RT-PCR) Not Detected Not Detecte Influenza Type B (RT-PCR) Not Detected Not Detecte SARS-CoV-2 RNA (RT-PCR) Not Detected Not Detecte Group A Streptococcus Screen NEGATIVE NEGATIVE (FELIX ESCALANTE DO) Medications Given in ED Current Medications Medications Dose Ordered Sig/Pablo Route Start Time Stop Time Status Last Admin Dose Admin Ketorolac Tromethamine 60 mg ONCE ONCE IM 05/12/21 20:45 05/12/21 20:46 DC 05/12/21 21:18 60 MG (FELIX ESCALANTE DO) Vital Signs/I&O 05/12/21 05/12/21 20:15 21:32 Temp 37.0 37.0 Pulse 99 89 Resp 16 16 B/P (MAP) 134/84 (101) 130/82 Pulse Ox 98 99 O2 Delivery Room Air Room Air (FELIX ESCALANTE DO) Vital Signs/I&O Capillary Refill : Less Than 3 Seconds (STORMY LAROSE APRN) Blood Pressure Mean: 101 Departure Impression Primary Impression: Viral syndrome Disposition: 01 HOME, SELF-CARE Condition: Stable Departure-Patient Inst. Decision time for Depature: 21:09 (STORMY LAROSE APRN) Referrals: NO,LOCAL PHYSICIAN (PCP/Family) Primary Care Physician Patient Instructions: Viral Syndrome (DC) Add. Discharge Instructions: . Use the cough/decongestant medication as directed. Return to ER for any c oncerns. 2. Follow up with your doctor this week All discharge instructions reviewed with patient and/or family. Voiced unde rstanding. Scripts D-Methorphan Hb/P-Epd HCl/Bpm (Bromfed Dm Cough Syrup) 118 Ml Syrup 5 ML PO Q4H for 7 Days, #120 ML Prov: STORMY LAROSE APRN 05/12/21 ATTENDING PHYSICIAN NOTE: I WAS PHYSICALLY PRESENT EMERGENCY ROOM PHYSICIAN WHEN THIS PATIENT WAS IN ER, BUT I WAS NOT INVOLVED IN ANY DECISION MAKING OR ANY CARE OF THIS PATIENT. (FELIX ESCALANTE DO) STORMY LAROSE APRN May 12, 2021 20:36 FELIX ESCALANTE DO May 13, 2021 01:57
[2021-05-12] MEDS ORDERED: KETOROLAC 60 MG/2 ML VIAL IM ONE (20:45)
[2021-05-12] MEDS ORDERED: D-ME118S33 PO (21:10)
[2021-05-12 21:32] VITALS: BP 130/82
== END 2021-05-12 21:32 | disposition home or self-care (01) ==
LOC: EDUNIT# 19:54 → ER 19:56
DX: B34.9 Viral infection, unspecified (principal); Z20.822 Contact with and (suspected) exposure to COVID-19
CPT/HCPCS: 87430; 87636

== ENCOUNTER → 2022-01-07 | Outpatient (CLI) | payer MEDICAID ==
[~2022-01-07] MED LIST changes: +D-ME118S33 PO
== END ==
LOC: LAB 12:04
PROVIDERS: ATTEND Specialist
DX: B20 Human immunodeficiency virus [HIV] disease (principal)
CPT/HCPCS: 36415; 86360; 87536

== ENCOUNTER 2022-06-13 14:58 | Emergency (ER) | payer MEDICAID ==
[~2022-06-13] VITALS: Ht 162.5 cm; Wt 72.5 kg
--- NOTE | 2022-06-13 15:26 | ED GI ---
General Chief Complaint: Abdominal/GI Problems Stated Complaint: 10 WKS | VOMITING | DIARRHEA Source of Information: Patient Exam Limitations: No Limitations History of Present Illness Date Seen by Provider: Jun 13, 2022 Time Seen by Provider: 15:10 Initial Comments Patient is a 21-year-old G2, P1 who presents to the emergency department approximately 10 weeks chief complaint 12 hours nausea, vomiting and diarrhea. She states she woke up suddenly in the middle of the night around 3 AM with nausea. She states that she only vomited once but has felt all day like she could vomit again. She has had multiple episodes 4-6 of watery diarrhea nonblack nonbloody. No sick contacts at home. No recent travel. drinks bottled water. She has a 2-year-old who is currently healthy. She is HIV positive. No fevers, chills, URI symptoms. No shortness of breath, chest pain, productive cough. She was placed on amoxicillin by her OB provider a couple of days ago but has not taken her dose today because she was so nauseous. She was put on amoxicillin for suspicion for urinary tract infection. She has no dysuria currently she states her urine was "dark". Due date is January 04. She is on Biktarvy for HIV. All other review of systems reviewed and negative except as stated. Timing/Duration: 12 Hours Severity/Quality: Moderate, Cramping (mild) Location: Generalized Abdomen Radiation: No Radiation Activities at Onset: Sleeping Associated Symptoms: Nausea/Vomiting, Other (diarrhea) Allergies and Home Medications Allergies Coded Allergies: Sulfa (Sulfonamide Antibiotics) (Verified Allergy, Unknown, 03/19/20) Patient Home Medication List Home Medication List Reviewed: Yes D-Methorphan Hb/P-Epd HCl/Bpm (Bromfed Dm Cough Syrup) 118 Ml Syrup, 5 ML PO Q4H Prescribed by: STORMY LAROSE on 05/12/21 2110 Hydrocodone/Acetaminophen (Hydrocodone-Acetamin 5-325 mg) 1 Each Tablet, 1 EACH PO Q4H PRN for PAIN-SEVERE (8-10) Prescribed by: VIJI RUIZ on 03/29/20 0943 Ondansetron (Ondansetron Odt) 4 Mg Tab.rapdis, 4 MG SL Q4H PRN for NAUSEA/VOMITING Prescribed by: VIJI RUIZ on 03/29/20 0942 Oxycodone HCl/Acetaminophen (Percocet 5-325 mg Tablet) 1 Each Tablet, 1 TAB PO Q4H PRN for PAIN-BREAKTHROUGH Prescribed by: JIMMY FARRELL on 03/30/202243 Promethazine HCl (Promethazine Tablet) 25 Mg Tablet, 25 MG PO Q6H PRN for NAUSEA/VOMITING Prescribed by: JIMMY FARRELL on 03/30/202242 Review of Systems Review of Systems Constitutional: see HPI Respiratory: No Symptoms Reported Cardiovascular: No Symptoms Reported Gastrointestinal: Diarrhea, Nausea, Poor Appetite, Vomiting Genitourinary: No Symptoms Reported Musculoskeletal: no symptoms reported Skin: no symptoms reported Psychiatric/Neurological: No Symptoms Reported All Other Systems Reviewed Negative Unless Noted: Yes Past Wdnvmay-Fnlisp-Khlliw Hx Patient Social History Tobacco Use?: Yes Smoking Status: Current Everyday Smoker Use of E-Cig and/or Vaping dev: No Substance use?: No Alcohol Use?: No Pt feels they are or have been: No Immunizations Up To Date Tetanus Booster (TDap): Less than 5yrs PED Vaccines UTD: Yes Seasonal Allergies Seasonal Allergies: No Past Medical History Surgery/Hospitalization HX: SX: [facility] HIV + Surgeries: No Respiratory: No Cardiac: No Neurological: No HIV/AIDS: Yes (since age 13, is on biktarvy ) Genitourinary: No Gastrointestinal: No Musculoskeletal: No Endocrine: No HEENT: No Cancer: No Psychosocial: No Integumentary: No Blood Disorders: No Family Medical History Alcoholism 19 MOTHER Arthritis 19 MOTHER, Onset:40's - 50 Other Conditions/Hx Physical Exam Vital Signs Vital Signs - First Documented 06/13/22 15:04 Temp 35.9 Pulse 99 Resp 16 B/P (MAP) 115/78 (90) Pulse Ox 99 O2 Delivery Room Air Capillary Refill : Height/Weight/BMI Height: '" Weight: lbs. oz. kg; 28.00 BMI Method: General Appearance: WD/WN, no apparent distress HEENT: PERRL/EOMI, other (dry mucous membranes) Respiratory: lungs clear, normal breath sounds, no respiratory distress, no accessory muscle use Cardiovascular: regular rate, rhythm, tachycardia (103) Gastrointestinal: normal bowel sounds, non tender, soft Extremities: normal range of motion, non-tender, normal inspection, no pedal edema, normal capillary refill Neurologic/Psychiatric: alert, normal mood/affect, oriented x 3 Skin: normal color, warm/dry Progress/Results/Core Measures Results/Orders Lab Results Laboratory Tests Test 06/13/22 15:30 06/13/22 17:18 Range/Units Sodium Level 134 L 135-145 MMOL/L Potassium Level 3.6 3.6-5.0 MMOL/L Chloride Level 104 98-107 MMOL/L Carbon Dioxide Level 20 L 21-32 MMOL/L Anion Gap 10 5-14 MMOL/L Blood Urea Nitrogen 6 L 7-18 MG/DL Creatinine 0.61 0.60-1.30 MG/DL Estimat Glomerular Filtration Rate 129 BUN/Creatinine Ratio 10 Glucose Level 81 70-105 MG/DL Calcium Level 9.3 8.5-10.1 MG/DL Urine Color YELLOW Urine Clarity CLEAR Urine pH 6.0 5-9 Urine Specific [place] 1.020 1.016-1.022 Urine Protein NEGATIVE NEGATIVE Urine Glucose (UA) NEGATIVE NEGATIVE Urine Ketones 3+ H NEGATIVE Urine Nitrite POSITIVE H NEGATIVE Urine Bilirubin NEGATIVE NEGATIVE Urine Urobilinogen 0.2 < = 1.0 MG/DL Urine Leukocyte Esterase 1+ H NEGATIVE Urine RBC (Auto) TRACE-I H NEGATIVE Urine RBC 2-5 H /HPF Urine WBC 0-2 /HPF Urine Squamous Epithelial Cells 5-10 /HPF Urine Crystals NONE /LPF Urine Bacteria MODERATE H /HPF Urine Casts NONE /LPF Urine Mucus NEGATIVE /LPF Urine Culture Indicated YES My Orders Orders - JAE CAVAZOS MD Ed Iv/Invasive Line Start (06/13/22 15:17) Basic Metabolic Panel (06/13/22 15:17) Heart Tones (06/13/22 15:17) Ua Culture If Indicated (06/13/22 15:17) Lactated Ringers (Lr 1000 Ml Iv Solution (06/13/22 15:30) Ondansetron Injection (Zofran Injectio (06/13/22 15:30) Lactated Ringers (Lr 1000 Ml Iv Solution (06/13/22 17:15) Urine Culture (06/13/22 17:18) Medications Given in ED Current Medications Medications Dose Ordered Sig/Pablo Route Start Time Stop Time Status Last Admin Dose Admin Ondansetron HCl 8 mg ONCE ONCE IVP 06/13/22 15:30 06/13/22 15:31 DC 06/13/22 15:34 8 MG Vital Signs/I&O 06/13/22 15:04 Temp 35.9 Pulse 99 Resp 16 B/P (MAP) 115/78 (90) Pulse Ox 99 O2 Delivery Room Air Progress Progress Note : Time: 17:56 Progress Note Patient seen and examined by me, 21-year-old 10 weeks nausea vomiting and diarrhea. Also urinary tract infection which is confirmed on urinalysis here in the department. Serum chemistry is normal. She is treated with 2 L of lactated Ringer's as well as 8 mg of IV Zofran. She feels much better, no nausea currently. I stressed the importance of finishing out her amoxicillin prescription for her urinary tract infection. We will give her a take-home pack of Zofran and [facility]. heart tones in the 160s. Benign abdominal exam no concerning findings for acute surgical pathology such as appendicitis, bowel obstruction, pyelonephritis, etc. she has had no vomiting or diarrhea while here in the department. Return precautions provided. Patient verbalized understanding. All questions are sought and answered. Counseling-Symptomatic: 3-10 Minutes Follow-up with PCP to: Discuss Further Options Departure Impression Primary Impression: Gastroenteritis Additional Impressions: First trimester Urinary tract infection affecting care of mother in first trimester, antepartum Disposition: 01 HOME, SELF-CARE Condition: Improved Departure-Patient Inst. Decision time for Depature: 17:58 Referrals: VIDA STERLING MD (PCP/Family) Primary Care Physician Patient Instructions: Urinary Tract Infections in Add. Discharge Instructions: Take Zofran/ondansetron 4 mg every 6-8 hours as needed for nausea. Be sure and try and drink plenty of fluids to stay well-hydrated. Follow a bland diet for 24 hours, nothing very heavy, greasy or spicy. Please continue to take your antibiotic prescription for your urinary tract infection until the medication is gone. Return to the emergency room for any worsening symptoms especially with fever, abdominal cramping/pain, vaginal bleeding or any other emergent, concerning symptoms. Scripts Ondansetron (Ondansetron Odt) 4 Mg Tab.rapdis 4 MG SL Q8H PRN for NAUSEA/VOMITING, #10 TAB Prov: JAE CAVAZOS MD 06/13/22 JAE CAVAZOS MD Jun 13, 2022 15:26
[2022-06-13] MEDS ORDERED: ONDANSETRON 4 MG/2 ML (SDV) Z0FRAN IVP ONE (15:30)
[2022-06-13] MEDS ORDERED: LACTATED RINGERS 1,000 ML IV SCH ×2 (15:30→17:15)
[2022-06-13 15:51] LABS: POTASSIUM 3.6 MMOL/L (3.6-5.0)
[2022-06-13 15:52] LABS: CALCIUM 9.3 MG/DL (8.5-10.1)
[2022-06-13 15:57] LABS: CREATININE SERUM 0.61 MG/DL (0.60-1.30)
[2022-06-13 17:24] LABS: BILIRUBIN,URINE NEGATIVE (NEGATIVE); CLARITY,URINE CLEAR; COLOR,URINE YELLOW; GLUCOSE, URINE (UA) NEGATIVE (NEGATIVE); KETONES,URINE 3+ (NEGATIVE); LEUKOCYTE ESTERASE ,URINE 1+ (NEGATIVE); NITRITE,URINE POSITIVE (NEGATIVE); PROTEIN,URINE NEGATIVE (NEGATIVE)
[2022-06-13 17:38] LABS: BACTERIA,URINE MODERATE /HPF; WBC,URINE 0-2 /HPF
[2022-06-13] MEDS ORDERED: RX-ONDANSETRON 4 MG ODT (ZOFRAN) PPK #4 PO STA (17:59)
[2022-06-13] MEDS ORDERED: ONDA4TAB11 SL (17:59)
[2022-06-13 18:14] VITALS: BP 121/79
== END 2022-06-13 18:14 | disposition home or self-care (01) ==
LOC: EDUNIT# 14:58 → ER 14:59
DX: O99.611 Diseases of the digestive system complicating pregnancy, first trimester (principal); O23.41 Unspecified infection of urinary tract in pregnancy, first trimester; O99.331 Smoking (tobacco) complicating pregnancy, first trimester; K52.9 Noninfective gastroenteritis and colitis, unspecified; N39.0 Urinary tract infection, site not specified; F17.200 Nicotine dependence, unspecified, uncomplicated; Z88.2 Allergy status to sulfonamides; Z3A.10 10 weeks gestation of pregnancy
CPT/HCPCS: 36415; 80048; 81000; 87077; 87088; 87186

== ENCOUNTER 2022-09-16 14:34 | Outpatient (CLI) | payer MEDICAID ==
[2022-09-16 14:59] VITALS: BP 120/57
--- NOTE | 2022-09-17 08:25 | Physician Query-Final Dx ---
EULOGIO,09/17/22 0825: Clinic Account Progress/Dx Physician Query: Please give diagnosis Please include # weeks gestation Date of Service Sep 16, 2022 at 14:34 VIDA STERLING MD 09/17/22 2143: Clinic Account Progress/Dx DIAGNOSIS: Diagnosis Back pain in Second trimester 24 weeks gestation EULOGIO,MaySep 17, 2022 08:25 VIDA STERLING MD Sep 17, 2022 21:43
== END 2022-09-16 15:10 | disposition home or self-care (01) ==
LOC: LDRP 14:34 → WSo 14:34
PROVIDERS: ATTEND Family Medicine
DX: O26.892 Other specified pregnancy related conditions, second trimester (principal); M54.9 Dorsalgia, unspecified; Z3A.24 24 weeks gestation of pregnancy
CPT/HCPCS: 59025

== ENCOUNTER 2022-09-16 15:17 | Emergency (ER) | payer MEDICAID ==
[~2022-09-16] VITALS: Ht 162.6 cm; Wt 79.4 kg
[2022-09-16] MEDS ORDERED: ACETAMINOPHEN 500 MG TAB (TYLENOL) PO ONE (16:00)
--- NOTE | 2022-09-16 16:25 | ED Back Pain ---
General Chief Complaint: Back Problems Stated Complaint: BACK PAIN Nursing Triage Note: PT AMBULATE TO ROOM 06 WITHOUT DIFFICULTY WITH C/O LEFT LOWER BACK PAIN STARTING YESTERDAY. PT REPORS SHE WAS BENDING OVER TO SET HER CHILD DOWN AND FELT SOMETHING "POP" IN HER LEFT LOWER BACK. PT REPORTS CALLING HER OB AND THAT OB PROVIDER WAS NOT IN OFFICE. PT STATES OB OFFICE TOLD HER TO GO TO [facility], ED, OR MAKE AN APPOINTMENT. PT STATES SHE CAME TO ED BECAUSE SHE THOUGHT ED WOULD BE ABLE TO DO TESTING. PT STATES SHE WANTS A WORK NOT FOR TONIGHT. Source of Information: Patient Exam Limitations: No Limitations History of Present Illness Date Seen by Provider: Sep 16, 2022 Time Seen by Provider: 15:35 Initial Comments 22-year-old female presents to the ED with complaints of left lower back pain since yesterday after lifting her son. Allergies and Home Medications Allergies Coded Allergies: Sulfa (Sulfonamide Antibiotics) (Verified Allergy, Unknown, 03/19/20) Patient Home Medication List D-Methorphan Hb/P-Epd HCl/Bpm (Bromfed Dm Cough Syrup) 118 Ml Syrup, 5 ML PO Q4H Prescribed by: STORMY LAROSE on 05/12/212109 Hydrocodone/Acetaminophen (Hydrocodone-Acetamin 5-325 mg) 1 Each Tablet, 1 EACH PO Q4H PRN for PAIN-SEVERE (8-10) Prescribed by: VIJI RUIZ on 03/29/20 0943 Ondansetron (Ondansetron Odt) 4 Mg Tab.rapdis, 4 MG SL Q4H PRN for NAUSEA/VOMITING Prescribed by: VIJI RUIZ on 03/29/20 0942 Ondansetron (Ondansetron Odt) 4 Mg Tab.rapdis, 4 MG SL Q8H PRN for NAUSEA/VOMITING Prescribed by: JAE CAVAZOS on 06/13/22 175 Oxycodone HCl/Acetaminophen (Percocet 5-325 mg Tablet) 1 Each Tablet, 1 TAB PO Q4H PRN for PAIN-BREAKTHROUGH Prescribed by: JIMMY FARRELL on 03/30/202243 Promethazine HCl (Promethazine Tablet) 25 Mg Tablet, 25 MG PO Q6H PRN for NAUSEA/VOMITING Prescribed by: JIMMY FARRELL on 11/12/10 2242 Past Gkticpr-Brhzdv-Xjnmhp Hx Patient Social History Tobacco Use?: Yes Tobacco type used: Cigarettes Smoking Status: Current Everyday Smoker Smokeless Tobacco Frequency: Never a User Use of E-Cig and/or Vaping dev: No Substance use?: No Alcohol Use?: No Pt feels they are or have been: No Immunizations Up To Date Tetanus Booster (TDap): Less than 5yrs PED Vaccines UTD: Yes Seasonal Allergies Seasonal Allergies: No Past Medical History Surgery/Hospitalization HX: SX: [facility] HIV + Surgeries: No Respiratory: No Cardiac: No Neurological: No HIV/AIDS: Yes (since age 13, is on biktarvy ) Genitourinary: No Gastrointestinal: No Musculoskeletal: No Endocrine: No HEENT: No Cancer: No Psychosocial: No Integumentary: No Blood Disorders: No Family Medical History Alcoholism 19 MOTHER Arthritis 19 MOTHER, Onset:40's - 50 Other Conditions/Hx Physical Exam Vital Signs Vital Signs - First Documented 09/16/22 15:24 Temp 36.2 Pulse 96 Resp 16 B/P (MAP) 124/65 (84) O2 Delivery Room Air Capillary Refill : Less Than 3 Seconds Height, Weight, BMI Height: '" Weight: lbs. oz. kg; 30.00 BMI Method: Progress/Results/Core Measures Results/Orders My Orders Orders - NICOLASA GOTTI APRN Ua Culture If Indicated (09/16/22 15:35) Urine Bedside (09/16/22 15:35) Acetaminophen Tablet (Tylenol Tablet) (09/16/22 16:00) Medications Given in ED Current Medications Medications Dose Ordered Sig/Pablo Route Start Time Stop Time Status Last Admin Dose Admin Acetaminophen 1,000 mg ONCE ONCE PO 09/16/22 16:00 09/16/22 16:01 DC 09/16/22 16:06 1,000 MG Vital Signs/I&O 09/16/22 15:24 Temp 36.2 Pulse 96 Resp 16 B/P (MAP) 124/65 (84) O2 Delivery Room Air Blood Pressure Mean: 84 Departure Impression Primary Impression: Lumbar sprain Additional Impression: Back strain Disposition: 07 AGAINST MEDICAL ADVICE Condition: Stable Departure-Patient Inst. Decision time for Depature: 16:24 Referrals: VIDA STERLING MD (PCP/Family) Primary Care Physician Patient Instructions: Exercises for Upper Back Pain Add. Discharge Instructions: Follow-up with OB. You may take Tylenol as needed for pain. Try ice or heat and use whichever feels better. Return for worsening pain, fevers, pain with urination, or any other new, concerning, or worsening symptoms. All discharge instructions reviewed with patient and/or family. Voiced understanding. Work/School Note: Work Release Form Date Seen in the Emergency Department: Sep 16, 2022 Return to Work: Sep 17, 2022 Restrictions: No Restrictions NICOLASA GOTTI APRN Sep 16, 2022 16:25
[2022-09-16 16:28] VITALS: BP 127/65
== END 2022-09-16 16:28 | disposition left against medical advice (07) ==
LOC: EDUNIT# 15:17 → ER 15:19
DX: S39.012A Strain of muscle, fascia and tendon of lower back, initial encounter (principal); S33.5XXA Sprain of ligaments of lumbar spine, initial encounter; F17.210 Nicotine dependence, cigarettes, uncomplicated; Z21 Asymptomatic human immunodeficiency virus [HIV] infection status; Z79.899 Other long term (current) drug therapy; Z28.310 Unvaccinated for COVID-19; X50.1XXA Overexertion from prolonged static or awkward postures, initial encounter
CPT/HCPCS: 99283

== ENCOUNTER 2022-10-23 15:15 | Outpatient (CLI) | payer MEDICAID ==
[~2022-10-23] VITALS: Ht 162 cm; Wt 81.8 kg
[2022-10-23] MEDS ORDERED: PREN1TAB19 PO (16:00)
[2022-10-23] MEDS ORDERED: BICT1TAB PO (16:00)
[2022-10-23 16:02] VITALS: BP 117/69
[2022-10-23] MEDS ORDERED: PHEN-574 PO (16:23)
[2022-10-23] MEDS ORDERED: DIPH25CA79 PO (16:23)
[2022-10-23 16:45] VITALS: BP 119/67
[2022-10-23 17:05] VITALS: BP 119/67
--- NOTE | 2022-10-26 08:28 | Physician Query-Final Dx ---
Clinic Account Progress/Dx Physician Query: Please give diagnosis Please include # weeks gestation Date of Service Oct 23, 2022 at 15:15 EULOGIO,MayOct 26, 2022 08:28
== END 2022-10-23 17:05 | disposition home or self-care (01) ==
LOC: WSo 15:15 → LDRP 15:15 → WSo 17:05
PROVIDERS: ATTEND Family Medicine
DX: Z34.90 Encounter for supervision of normal pregnancy, unspecified, unspecified trimester (principal); Z3A.00 Weeks of gestation of pregnancy not specified
CPT/HCPCS: 99213

== ENCOUNTER 2022-12-25 05:42 | Inpatient (IN) | payer MEDICAID ==
[2022-12-25] VITALS (50 sets, daily range): BP systolic 90–147; BP diastolic 50–92
[~2022-12-25] VITALS: Ht 162.6 cm; Wt 85.6 kg
[~2022-12-25 05:42] MED LIST changes: +BICT1TAB PO; +DIPH25CA79 PO; +PHEN-574 PO; +PREN1TAB19 PO
[2022-12-25] MEDS ORDERED: D5 LR 1,000 ML IV SOLN 1,000 ML IV ONE (05:59)
[2022-12-25] MEDS ORDERED: MINERAL OIL 30 ML UDC TOP PRN (06:00)
[2022-12-25] MEDS ORDERED: OXYTOCIN PRE-MIX DRIP 500 ML IV SCH ×2 (06:00→14:30)
[2022-12-25] MEDS ORDERED: CATHETER FLUSH 10 ML SYR IV SCH ×2 (06:00→22:00)
[2022-12-25] MEDS: D5 LR 1,000 ML IV SOLN 1,000 ML IV SCH ×2 (06:25→13:28)
[2022-12-25 06:33] LABS: BASOPHILS % (AUTO) 0 % (0-10); EOSINOPHILS # (AUTO) 0.1 10^3/uL (0.0-0.3); EOSINOPHILS % (AUTO) 0 % (0-10); HEMATOCRIT 35 % (35-52); HEMOGLOBIN 11.1 g/dL (11.5-16.0); LYMPHOCYTES # (AUTO) 3.2 10^3/uL (1.0-4.0); LYMPHOCYTES % (AUTO) 24 % (12-44); MEAN CORPUSCULAR HEMOGLOBIN 24 pg (25-34); MEAN CORPUSCULAR HGB CONC 32 g/dL (32-36); MEAN CORPUSCULAR VOLUME 74 fL (80-99); MEAN PLATELET VOLUME 10.9 fL (9.0-12.2); MONOCYTES # (AUTO) 0.7 10^3/uL (0.0-1.0); MONOCYTES % (AUTO) 5 % (0-12); NEUTROPHILS # (AUTO) 9.4 10^3/uL (1.8-7.8); NEUTROPHILS % (AUTO) 70 % (42-75); PLATELET COUNT 197 10^3/uL (130-400); WHITE BLOOD COUNT 13.4 10^3/uL (4.3-11.0)
[2022-12-25] MEDS ORDERED: ZIDOVUDINE IV ONE ×2 (06:45)
[2022-12-25] MEDS ORDERED: DEXTROSE IV ONE ×2 (06:45)
[2022-12-25] MEDS ORDERED: fentaNYL 2 mcg/ml BUPIVA 0.125 100 ML ONE (07:19)
[2022-12-25] MEDS ORDERED: CATHETER FLUSH 10 ML SYR IV PRN (07:30)
[2022-12-25] MEDS ORDERED: NALOXONE 0.4 MG/ML 1 ML (NARCAN) VIAL IV PRN (07:30)
[2022-12-25] MEDS ORDERED: LACTATED RINGERS 1,000 ML IV ONE (07:30)
[2022-12-25] MEDS ORDERED: diphenhydrAMINE INJ 50 MG/ML VIAL IV PRN (07:30)
[2022-12-25] MEDS ORDERED: ONDANSETRON 4 MG/2 ML (SDV) Z0FRAN IV PRN (07:30)
[2022-12-25] MEDS ORDERED: fentaNYL 2 mcg/ml BUPIVA 0.125 100 ML EPI SCH (07:30)
[2022-12-25] MEDS ORDERED: fentaNYL INJECTION 100 MCG/2 ML VIAL ONE (07:42)
[2022-12-25] MEDS ORDERED: BUPIVACAINE 0.25% 10 ML VIAL ONE (07:42)
[2022-12-25] MEDS ORDERED: DEXTROSE IV SCH ×2 (07:45)
[2022-12-25] MEDS ORDERED: ZIDOVUDINE IV SCH ×2 (07:45)
--- NOTE | 2022-12-25 07:56 | History & Physical-OB ---
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 She denies leaking fluid, bleeding, and endorses normal movement. Admission Nurse Assessment Rev: Yes History of Labs B+, antibody neg, RI. HepB/HepC/RPR NR. GC/chlamydia neg. 1 hour glucola normal. Hgb at 28 weeks 10.9. GBS neg. HIV positive, viral load undetectable on throughout including on 11/26 and at 37 weeks. Other Pt seen by community coordinator for high school early in , recommended continue Biktarvy and follow viral load, which remained undetectable entire , follows with ID as well, saw them during and has follow up after. Per MFM, with undetectable load, zidovudine not necessary, but okay to use as patient desired to have given she had with other deliveries. Growth ultrasounds q4 weeks reassuring. Allergies and Home Medications Allergies Coded Allergies: Sulfa (Sulfonamide Antibiotics) (Verified Allergy, Unknown, 03/19/20) Patient Home Medication List Home Medication List Reviewed: Yes Albuterol Sulfate (Albuterol Sulfate) 2.5 Mg/3 Ml (0.083 %) Vial.neb, 3 ML INH Q4H PRN for WHEEZING, (Reported) Entered as Reported by: VIDA STERLING on 12/25/22758 Last Action: Reviewed Albuterol Sulfate (Proair Digihaler) 90 Mcg Aer.pw.bas, 2 PUFF INH Q4H PRN for WHEEZING, (Reported) Entered as Reported by: VIDA STERLING on 12/25/22758 Last Action: Reviewed Bictegrav/Emtricit/Tenofov Ala (Biktarvy 50-200-25 mg Tablet) 50 Mg-200 Mg-25 Mg Tablet, 1 EACH PO DAILY, (Reported) Entered as Reported by: FILIBERTO ANNE on 10/23/221599 Last Action: Reviewed Diphenhydramine HCl (Benadryl) 25 Mg Capsule, 25 MG PO for CONGESTION, (Report ed) Entered as Reported by: FILIBERTO ANNE on 10/23/221622 Last Action: Reviewed Famotidine (Famotidine) 20 Mg Tablet, 20 MG PO DAILY, (Reported) Entered as Reported by: VIDA STERLING on 12/25/22 0759 Last Action: Reviewed Vit/Iron Fumarate/FA ( Vitamins Tablet) 28 Mg Iron-800 Mcg Tablet, 1 EACH PO DAILY, (Reported) Entered as Reported by: FILIBERTO ANNE on 10/23/221599 Last Action: Reviewed Discontinued Medications Ondansetron (Ondansetron Odt) 4 Mg Tab.rapdis, 4 MG SL Q4H PRN for NAUSEA/VOMITING Discontinued Reason: No Longer Taking Prescribed by: VIJI RUIZ on 03/29/20 0942 Last Action: Discontinued Ondansetron (Ondansetron Odt) 4 Mg Tab.rapdis, 4 MG SL Q8H PRN for NAUSEA/VOMITING Discontinued Reason: No Longer Taking Prescribed by: JAE CAVAZOS on 06/13/22 175 Last Action: Discontinued Phenylephrine/Dm/Acetaminop/GG (Tylenol Cold & Flu Severe Cplt) 5 Mg-10 Mg-325 Mg-200 Mg Tablet, 1 EACH PO for CONGESTION, (Reported) Discontinued Reason: No Longer Taking Entered as Reported by: FILIBERTO ANNE on 10/23/221622 Last Action: Discontinued OB - History Hx of Present Care: Yes Ultrasounds: Normal mid trimester US, Other (growth US q4 normal) Information Induced Hypertension: No Maternal Gestational Diabetes: No Hemorrhage: No Obstetrical History Hx : 7 Hx Para: 4 Hx # Term Pregnancies: 4 Hx # Pregnancies: 0 Number of Living Children: 4 Hx Total # of Abortions (Spona: 2 Hx Multiple Gestation: No Hx Ectopic : No Hx Stillbirth: No Hx Complication: Yes (HIV complicating ) Hx Induced Hypertens: No Hx Maternal Gestational Diabet: No Hx Hemorrhage: No Delivery History Hx Dystocia: No Hx Forceps Assisted Delivery: No Hx Vacuum Extraction Assisted: No Hx Placenta Abnormality: No Hx Distress: No Hx Large For Gestational Age I: No Hx Small for Gestational Age I: No Hx Section: No Hx Vaginal Delivery Post C-Sec: No Hx Blood Disorders: No Adverse Rxn to Tranfusion: No Risk Variables Obstetrical Risk Variables: POA Anemia, POA Asthma; Not POA Autoimmune Disease, Not POA Bariatric Surgery, Not POA Bleeding Disorder, Not POA BMI >= 40, Not POA Cardiac Disease, Not POA Economic Housing Instabil, Not POA Gastrointestinal Disease, Not POA Gestational Diabetes; POA HIV; Not POA Hypertension, Not POA Fpc Anticoagulant U, Not POA Mental Health Disorder, Not POA Multiple , Not POA Neuromuscular Disease, Not POA Obstetrical VTE, Not POA Other Preeclampsia, Not POA Placenta Previa, Not POA Placental Abruption, Not POA Placenta Accreta Spectrum, Not POA Preexisting Diabetes, Not POA , Not POA Previous , Not POA Pulmonary Hypertension, Not POA Renal Diseas e, Not POA Severe Preeclampsia, Not POA Substance Abuse, Not POA Thyrotoxicosis Patient Past Medical History PMHx: HIV Mild intermittent asthma SurgHx: Cholecystectomy Social History/Family History Alcohol Use: Denies Use Recreational Drug Use: No Smoking Cessation: Current every day smoker 2nd Hand Smoke Exposure: No Immunizations Tetanus Booster (TDap): Less than 5yrs (11/09/22) Date of Pneumonia Vaccine: Oct 23, 2019 Rubella: immune RPR/VDRL: Negative GBS Status: Negative HBsAG: Negative OB - Admission Exam Physical Exam Vitals: Vital Signs 12/25/22 12/25/22 06:00 06:50 Temp 36.1 Pulse 88 Resp 18 B/P (MAP) 130/84 (99) Pulse Ox 98 O2 Delivery Room Air HEENT: NCAT Abdomen: Gravid Extremities: Normal Membranes: Intact Heart Rate: 130's Accelerations: Accelerations Present Short Term Variability: Present Engineer Systems Variability: Average (6-25) Contractions on Admission: < 5 Minutes Apart Labs Laboratory Tests Test 12/25/22 06:25 Range/Units White Blood Count 13.4 H 4.3-11.0 10^3/uL Red Blood Count 4.70 3.80-5.11 10^6/uL Hemoglobin 11.1 L 11.5-16.0 g/dL Hematocrit 35 35-52 % Mean Corpuscular Volume 74 L 80-99 fL Mean Corpuscular Hemoglobin 24 L 25-34 pg Mean Corpuscular Hemoglobin Concent 32 32-36 g/dL Red Cell Distribution Width 15.3 H 10.0-14.5 % Platelet Count 197 130-400 10^3/uL Mean Platelet Volume 10.9 9.0-12.2 fL Immature Granulocyte % (Auto) 1 % Neutrophils (%) (Auto) 70 42-75 % Lymphocytes (%) (Auto) 24 12-44 % Monocytes (%) (Auto) 5 0-12 % Eosinophils (%) (Auto) 0 0-10 % Basophils (%) (Auto) 0 0-10 % Neutrophils # (Auto) 9.4 H 1.8-7.8 10^3/uL Lymphocytes # (Auto) 3.2 1.0-4.0 10^3/uL Monocytes # (Auto) 0.7 0.0-1.0 10^3/uL Eosinophils # (Auto) 0.1 0.0-0.3 10^3/uL Basophils # (Auto) 0.0 0.0-0.1 10^3/uL Immature Granulocyte # (Auto) 0.1 0.0-0.1 10^3/uL Syphilis Total Antibody Negative Negative OB - Assessment/Plan/Diagnosis Assessment Admission Dx Active labor at 38 weeks gestation HIV complicating Mild intermittent asthma GBS negative Admission Status: Inpatient Order (span 2 midnights) Reason for Inpatient Admission: Labor, delivery and course Plan Problems: (1) Active labor at term Assessment & Plan: Expectant management, avoid artificial ROM and internal monitors due to HIV status (2) Maternal HIV positive complicating Assessment & Plan: Per ID and MFM, zidovudine not required with undetectable viral load, but okay to use given patient preference. Started 2 mg/kg on admit, after one hour, change to 1 mg/kg for 2 hours. (3) Mild intermittent asthma Qualifiers: Qualified Codes: J45.20 - Mild intermittent asthma, uncomplicated VIDA STERLING MD Dec 25, 2022 07:56
[2022-12-25] MEDS ORDERED: FAMO20TA5 PO (07:59)
[2022-12-25] MEDS ORDERED: ALBU2.5V4 INH (07:59)
[2022-12-25] MEDS ORDERED: ALBU90AE2 INH (07:59)
--- NOTE | 2022-12-25 14:25 | OB Labor & Delivery Record ---
Vag Delivery Note Vag Delivery Note Date of Delivery: 12/25/22 Preoperative Diagnosis: Viry Brownlee is a (22 /Para 7 / 4, Gestational Age (wks)38with 4 days Postoperative Diagnosis: Same Surgeon: VIDA STERLING Anesthesia: epidural Delivery Type: Findings: Viable male , apgars 8/9, weight 0pg00eh Lacerations: none Intact placenta with 3 vessel cord. No nuchal cord, body cord or shoulder dystocia Estimated Blood Loss: 100 ml Complications: None Condition: Stable Description of Procedure: The patient is a 22 year old female who presented in active labor. She was admitted and informed consent was obtained. Her labor course was remarkable for prophylaxis with zidovudine and augmentation with pitocin. She progressed to complete dilatation and began to push. She was then set up for delivery. The infant's head was delivered atraumatically in the CASSI position. The shoulders and remainder of the 's body were then delivered without difficulty. Upon delivery, the was vigorous and placed on maternal chest and the mouth and nares were bulb suctioned. After a delay cord was doubly clamped and cut and the remained on maternal chest. An intact placenta with 3-vessel cord delivered via Scottie and there was found to be minimal bleeding.~ Vigorous fundal massage was performed and the fundus was found to be firm. IV oxytocin was given. Examination of the vagina and perineum revealed no laceration requiring repair. Following the delivery, sponge, instrument and needle counts were correct. Mom and baby were both in stable condition in the labor suite. Vitals - Labs Vital Signs - I&O Vital Signs Date Time Temp Pulse Resp B/P (MAP) Pulse Ox O2 Delivery O2 Flow Rate FiO2 12/25/22 13:30 83 16 121/72 (88) Room Air 12/25/22 13:15 80 16 125/63 (83) Room Air 12/25/22 13:00 37.0 74 18 112/60 (77) Room Air 12/25/22 12:45 83 16 127/66 (86) 100 Room Air 12/25/22 12:30 71 16 115/64 (81) 98 Room Air 12/25/22 12:15 75 18 112/54 (73) 98 Room Air 12/25/22 12:00 78 18 122/66 (84) 99 Room Air 12/25/22 11:45 85 16 127/66 (86) 100 Room Air 12/25/22 11:30 71 16 132/69 (90) 99 Room Air 12/25/22 11:15 80 16 125/71 (89) 100 Room Air 12/25/22 11:00 36.9 79 16 120/74 (89) 100 Room Air 12/25/22 10:45 82 18 145/73 (97) 100 Room Air 12/25/22 10:30 71 18 125/65 (85) 100 Room Air 12/25/22 10:15 74 18 114/56 (75) 98 Room Air 12/25/22 10:00 70 18 147/84 (105) 99 Room Air 12/25/22 09:45 82 16 140/80 (100) 100 Room Air 12/25/22 09:30 85 16 135/92 (106) 100 Room Air 12/25/22 09:15 90 18 128/83 (98) 98 Room Air 12/25/22 09:00 37.0 86 18 125/69 (87) 97 Room Air 12/25/22 08:41 88 18 130/78 (95) 99 Room Air 12/25/22 08:36 85 16 123/76 (92) 96 Room Air 12/25/22 08:30 93 16 126/75 (92) 92 Room Air 12/25/22 08:25 80 16 139/87 (104) 100 Room Air 12/25/22 08:20 83 18 131/82 (98) 99 Room Air 12/25/22 08:18 74 18 145/81 (102) 99 Room Air 12/25/22 08:17 81 18 127/78 (94) 99 Room Air 12/25/22 08:14 82 18 122/69 (86) 99 Room Air 12/25/22 08:11 37.0 108 18 143/71 (95) 99 Room Air 12/25/22 08:07 108 18 143/71 (95) 99 Room Air 12/25/22 08:04 86 18 139/76 (97) 99 Room Air 12/25/22 08:01 92 18 135/82 (99) 99 Room Air 12/25/22 07:58 95 18 134/81 (98) 99 Room Air 12/25/22 07:52 92 20 132/79 (96) 99 Room Air 12/25/22 07:20 37.0 75 20 138/80 (99) Room Air 12/25/22 06:50 88 18 130/84 (99) Room Air 12/25/22 06:45 84 18 126/82 (97) Room Air 12/25/22 06:00 36.1 93 18 98 Room Air Labs Laboratory Tests 12/25/22 06:25: White Blood Count 13.4H, Red Blood Count 4.70, Hemoglobin 11.1L, Hematocrit 35, Mean Corpuscular Volume 74L, Mean Corpuscular Hemoglobin 24L, Mean Corpuscular Hemoglobin Concent 32, Red Cell Distribution Width 15.3H, Platelet Count 197, Mean Platelet Volume 10.9, Immature Granulocyte % (Auto) 1, Neutrophils (%) (Auto) 70, Lymphocytes (%) (Auto) 24, Monocytes (%) (Auto) 5, Eosinophils (%) (Auto) 0, Basophils (%) (Auto) 0, Neutrophils # (Auto) 9.4H, Lymphocytes # (Auto) 3.2, Monocytes # (Auto) 0.7, Eosinophils # (Auto) 0.1, Basophils # (Auto) 0.0, Immature Granulocyte # (Auto) 0.1, Syphilis Total Antibody Negative VIDA STERLING MD Dec 25, 2022 14:25
[2022-12-25] MEDS ORDERED: RT-ALBUTEROL SULF 2.5 MG/3 ML PRE-MIX VIAL INH PRN (14:30)
[2022-12-25] MEDS ORDERED: PATIENT MAY USE OWN MEDS, ALL MC SCH (14:30)
[2022-12-25] MEDS ORDERED: WITCH HAZEL(TUCKS) 40 EA JAR TOP PRN (14:30)
[2022-12-25] MEDS ORDERED: BENZOCAINE/MENTHOL (DERMOPLAST) 56 ML CAN TP PRN (14:30)
[2022-12-25] MEDS ORDERED: RT-ALBUTEROL HFA 8.5 GM INHALER IH PRN (14:30)
[2022-12-25] MEDS ORDERED: PATIENT MAY USE OWN MED,SINGLE MED PO SCH (14:30)
[2022-12-25] MEDS ORDERED: OXYTOCIN PRE-MIX DRIP 500 ML IV ONE (14:39)
[2022-12-25] MEDS: DOCUSATE SODIUM 100 MG CAPSULE PO SCH (21:00)
[2022-12-26] MEDS: IBUPROFEN 600 MG (MOTRIN) TAB PO PRN ×3 (00:50→12:11)
[2022-12-26 02:34] VITALS: BP 127/60
[2022-12-26] MEDS: ACETAMINOPHEN 500 MG TABLET PO PRN ×2 (04:50→12:10)
[2022-12-26 05:06] LABS: BASOPHILS % (AUTO) 0 % (0-10); EOSINOPHILS # (AUTO) 0.1 10^3/uL (0.0-0.3); EOSINOPHILS % (AUTO) 1 % (0-10); HEMATOCRIT 29 % (35-52); HEMOGLOBIN 9.1 g/dL (11.5-16.0); LYMPHOCYTES # (AUTO) 2.9 10^3/uL (1.0-4.0); LYMPHOCYTES % (AUTO) 23 % (12-44); MEAN CORPUSCULAR HEMOGLOBIN 24 pg (25-34); MEAN CORPUSCULAR HGB CONC 32 g/dL (32-36); MEAN CORPUSCULAR VOLUME 75 fL (80-99); MEAN PLATELET VOLUME 10.6 fL (9.0-12.2); MONOCYTES # (AUTO) 0.7 10^3/uL (0.0-1.0); MONOCYTES % (AUTO) 6 % (0-12); NEUTROPHILS # (AUTO) 8.6 10^3/uL (1.8-7.8); NEUTROPHILS % (AUTO) 70 % (42-75); PLATELET COUNT 166 10^3/uL (130-400); WHITE BLOOD COUNT 12.3 10^3/uL (4.3-11.0)
[2022-12-26 05:55] VITALS: BP 120/74
[2022-12-26] MEDS ORDERED: PRENATAL VITAMIN 1 EA TAB PO SCH (07:00)
--- NOTE | 2022-12-26 08:48 | Discharge Summary ---
Diagnosis/Chief Complaint Date of Admission Dec 25, 2022 at 05:42 Date of Discharge December 26, 2022 Admission Diagnosis Admission Diagnosis 1. Intrauterine at 38 weeks 4 days gestation 2. Maternal HIV with viral load undetectable 3. Anemia Discharge Diagnosis 1. Intrauterine at 38 weeks 4 days gestation 2. Maternal HIV with viral load undetectable 3. Anemia Chief Complaint/HPI Chief Complaint/HPI 22-year-old 7 now para 5 who initially presented to labor and delivery during the morning of December 25, 2022 in labor. She had received her care through Dr. Diaz at [facility]. She was known to have maternal HIV with undetectable viral load throughout entire . She was taking Biktarvy. Discharge Summary-OBS Procedures 1. Epidural per anesthesia 2. Spontaneous vaginal delivery Discharge Physical Examination Allergies: Coded Allergies: Sulfa (Sulfonamide Antibiotics) (Verified Allergy, Unknown, 03/19/20) Vitals & I&Os Intake and Output 12/26/22 00:00 Intake Total 1400 ml Balance 1400 ml Vital Sign - Last 12Hours Date Time Temp Pulse Resp B/P (MAP) Pulse Ox O2 Delivery O2 Flow Rate FiO2 12/26/22 05:55 35.6 71 18 120/74 (89) 99 Room Air General Appearance: Alert, Oriented X3 Respiratory: Clear to Auscultation Cardiovascular: Regular Rate Abdominal: Soft (With uterus firm) Hospital Course Was the Problem List Reviewed?: Yes following admission patient underwent routine antepartum care orders she did receive Zidovudine prophylactically. She also underwent amniotomy and had normal labor course. She received epidural per anesthesia. Ultimately she went on to deliver over an intact perineum a term viable male. Delivery was accomplished during the afternoon of December 25, 2022. Infant received Apgars of 8 at 1 minute and 9 at 5 minutes. Infant's weight was 6 lbs. 12 oz. Following delivery she underwent routine care orders. She had no complications during the remainder of hospital stay. Her hemoglobin in the morning of December 26 was 9.1 compared to admission of 11.1. She was noted to have pain controlled with ibuprofen. She was felt ready for dismissal during the afternoon of December 26 and she will follow up with Dr. Diaz in 6 weeks. Labs Laboratory Tests 12/26/22 04:55: White Blood Count 12.3H, Red Blood Count 3.86, Hemoglobin 9.1L, Hematocrit 29L, Mean Corpuscular Volume 75L, Mean Corpuscular Hemoglobin 24L, Mean Corpuscular Hemoglobin Concent 32, Red Cell Distribution Width 15.5H, Platelet Count 166, Mean Platelet Volume 10.6, Immature Granulocyte % (Auto) 1, Neutrophils (%) (Auto) 70, Lymphocytes (%) (Auto) 23, Monocytes (%) (Auto) 6, Eosinophils (%) (Auto) 1, Basophils (%) (Auto) 0, Neutrophils # (Auto) 8.6H, Lymphocytes # (Auto) 2.9, Monocytes # (Auto) 0.7, Eosinophils # (Auto) 0.1, Basophils # (Auto) 0.0, Immature Granulocyte # (Auto) 0.1 Discharge Instructions to patient/family Please see electronic discharge instructions given to patient. Discharge Medications Reviewed and agree with Discharge Medication list on patient's Discharge Instruction sheet Clinical Quality Measures Smoking Cessation Counseling: Counseling-Symptomatic: 3-10 Minutes BERNADETTE IGLESIAS MD Dec 26, 2022 08:48
[2022-12-26] MEDS ORDERED: IBUP-844 PO (08:50)
--- NOTE | 2022-12-26 08:51 | Discharge Inst-Women's Service ---
Discharge Inst-Women's Serv Depart Medication/Instructions New, Converted or Re-Newed RX: Transmitted to Pharmacy ([facility]) Instructions may take ibuprofen 600 mg 1 every 6 hours as needed for cramps or pain Problems Reviewed?: Yes Consults/Follow Up Additional Follow Up: Yes (Dr. Diaz in 6 weeks) Activity Activity: Activity as Tolerated Driving Instructions: No Driving for 1 Week Nothing Inside Vagina: No [place] (For 6 weeks) Diet Discharge Diet: Regular Diet Return to The Hospital For: As below Symptoms to Report to : Bleeding Excessive, Fever Over 101 Degrees F, Vaginal Discharge Foul For Any Problems or Questions: Contact Your Physician BERNADETTE IGLESIAS MD Dec 26, 2022 08:51
[2022-12-26] MEDS ORDERED: FAMOTIDINE 20 MG TABLET PO SCH (09:00)
--- NOTE | 2022-12-26 11:55 | Anesthesia-Regional Post-Op ---
Regional Patient Condition Mental Status: Alert, Oriented x3 Circulation: Same as Pre-Op Headache: Absent Sensation: Full Recovery Motor Block: Absent Post Op Complications Complications None Follow Up Care/Instructions Patient Instructions None needed. Anesthesia/Patient Condition Patient is doing well, no complaints, stable vital signs, no apparent adverse anesthesia problems. No complications reported per nursing. COURTNEY BARTON CRNA Dec 26, 2022 11:55
[2022-12-26 12:09] VITALS: BP 122/68
[2022-12-26] MEDS: DOCUSATE SODIUM 100 MG CAPSULE PO SCH (12:11)
== END 2022-12-26 16:10 | disposition home or self-care (01) | DRG 807 ==
LOC: LDRP 05:42
PROVIDERS: ADMIT Family Medicine; ATTEND Family Medicine
PROC: 10E0XZZ Delivery of Products of Conception, External Approach (ICD-10-PCS; principal; 2022-12-25)
DX: O98.72 Human immunodeficiency virus [HIV] disease complicating childbirth (principal); Z37.0 Single live birth; Z3A.38 38 weeks gestation of pregnancy; Z21 Asymptomatic human immunodeficiency virus [HIV] infection status; O99.52 Diseases of the respiratory system complicating childbirth; J45.20 Mild intermittent asthma, uncomplicated; O99.02 Anemia complicating childbirth
CPT/HCPCS: 36415; 85025; 86780; 86850; 86900; 86901